=== PATIENT | female | born 1960 | race Caucasian/White ===

== ENCOUNTER 2016-08-07 11:41 | Inpatient (IN) | payer OTHER ==
[~2016-08-07] VITALS: Ht 160 cm; Wt 137.2 kg
--- NOTE | 2016-08-07 12:24 | ED.ADGEN ---
Adult General Chief Complaint Chief Complaint: ABDOMINAL PAIN HPI HPI Patient is a 56 year old with known lower anterior abdominal wall hernia presents with acute pain over her hernia site upon coughing early this morning. Patient states this is worsening of her previous abdominal pain around her hernia. Associated symptoms include nausea. Patient is passing gas and denies diarrhea. Patient was evaluated for the same hernia last weekend at [facility]. It is unclear if there are any attempts to reduce the patient's hernia in the emergency department. The patient was discharged and referred to general surgeon. The patient has a chronic smoker and states she is currently suffering from a chest cold which is exacerbating her abdominal wall hernia pain. Patient denies history of asthma, COPD or congestive heart failure or obstructive sleep apnea. Patient denies any other acute symptoms or complaints. Review of Systems Review of Systems Review symptoms as per history of present illness. Current Medications Current Medications Current Medications Medications (Trade) Dose Ordered Sig/Sabina Start Time Stop Time Status Last Admin Dose Admin Albuterol/ Ipratropium (Duoneb) 3 ml RTQID 08/07/16 16:00 08/08/16 15:59 Fentanyl Citrate (Fentanyl 2ml Vial) 50 mcg 1X ONCE 08/07/16 12:30 08/07/16 12:31 DC 08/07/16 12:45 50 MCG Info (Do NOT chart on this entry -- for MONITORING) 1 each PRN DAILY PRN 08/07/16 12:45 08/09/16 12:44 Iohexol (Omnipaque 300 Mg/ml) 60 ml 1X ONCE 08/07/16 12:45 08/07/16 12:46 DC 08/07/16 13:08 60 ML Levofloxacin (Levaquin) 500 mg 1X ONCE 08/07/16 16:15 08/07/16 16:16 Ondansetron HCl (Zofran) 4 mg 1X ONCE 08/07/16 12:30 08/07/16 12:31 DC 08/07/16 12:45 4 MG Sodium Chloride 1,000 ml @ 1,000 mls/hr 1X ONCE 08/07/16 12:30 08/07/16 13:29 DC 08/07/16 12:45 1,000 MLS/HR Allergies Allergies Allergies Coded Allergies Type Severity Reaction Last Updated Verified No Known Drug Allergies 08/07/16 No Physical Exam Physical Exam Constitutional: Well developed, well nourished, fatigued but with moderate discomfort secondary to pain. HENT: Normocephalic, atraumatic, bilateral external ears normal, oropharynx moist, no oral exudates, nose normal. Eyes: PERRL. Neck: Normal range of motion. Cardiovascular:Heart rate regular rhythm. Lungs & Thorax: Respirations nonlabored, coarse breath sounds bilaterally. No wheezes or rales. Abdomen: Bowel sounds normal, soft, obesity compromising exam, lower midline incarcerated abdominal wall hernia Skin: Warm. Back: No tenderness, no CVA tenderness. Extremities: No tenderness, no cyanosis, no clubbing, ROM intact, no edema. Neurologic: Alert and oriented X 3, normal motor function, normal sensory function, no focal deficits noted. Psychologic: Affect normal, judgement normal, mood normal. Current Patient Data Vital Signs Vital Signs Date Time Temp Pulse Resp B/P (MAP) Pulse Ox O2 Delivery O2 Flow Rate FiO2 08/07/16 12:45 16 93 Room Air 08/07/16 12:09 80 135/82 (99) Lab Values Laboratory Tests Test 08/07/16 12:15 08/07/16 12:36 White Blood Count 6.8 x10^3/uL (4.0-11.0) Red Blood Count 5.55 x10^6/uL (3.50-5.40) H Hemoglobin 16.7 g/dL (12.0-15.5) H Hematocrit 51.2 % (36.0-47.0) H Mean Corpuscular Volume 92 fL (79-100) Mean Corpuscular Hemoglobin 30 pg (25-35) Mean Corpuscular Hemoglobin Concent 33 g/dL (31-37) Red Cell Distribution Width 14.8 % (11.5-14.5) H Platelet Count 236 x10^3/uL (140-400) Neutrophils (%) (Auto) 63 % (31-73) Lymphocytes (%) (Auto) 26 % (24-48) Monocytes (%) (Auto) 7 % (0-9) Eosinophils (%) (Auto) 3 % (0-3) Basophils (%) (Auto) 0 % (0-3) Neutrophils # (Auto) 4.3 x10^3uL (1.8-7.7) Lymphocytes # (Auto) 1.8 x10^3/uL (1.0-4.8) Monocytes # (Auto) 0.5 x10^3/uL (0.0-1.1) Eosinophils # (Auto) 0.2 x10^3/uL (0.0-0.7) Basophils # (Auto) 0.0 x10^3/uL (0.0-0.2) Sodium Level 142 mmol/L (136-145) Potassium Level 3.9 mmol/L (3.5-5.1) Chloride Level 102 mmol/L (98-107) Carbon Dioxide Level 33 mmol/L (21-32) H Anion Gap 7 (6-14) Blood Urea Nitrogen 12 mg/dL (7-20) Creatinine 1.2 mg/dL (0.6-1.0) H Estimated GFR (Cockcroft-Gault) 46.1 BUN/Creatinine Ratio 10 (6-20) Glucose Level 147 mg/dL (70-99) H Calcium Level 8.8 mg/dL (8.5-10.1) Total Bilirubin 0.5 mg/dL (0.2-1.0) Aspartate Amino Transferase (AST) 32 U/L (15-37) Alanine Aminotransferase (ALT) 47 U/L (14-59) Alkaline Phosphatase 112 U/L (46-116) Total Protein 8.0 g/dL (6.4-8.2) Albumin 3.4 g/dL (3.4-5.0) Albumin/Globulin Ratio 0.7 (1.0-1.7) L Lactic Acid Level 1.2 mmol/L (0.4-2.0) Laboratory Tests 08/07/16 12:15 Laboratory Tests 08/07/16 12:15 EKG EKG [] Radiology/Procedures Radiology/Procedures [Chest x-ray: No acute cardiopulmonary disease per radiology report CT abdomen pelvis: Arch ventral wall hernia without evidence of bowel obstruction] Impressions: No evidence of strangulated hernia or partial small bowel obstruction. Course & Med Decision Making Course & Med Decision Making Pertinent Labs and Imaging studies reviewed. (See chart for details) [Case reviewed with Dr. Berrios who recommends patient follow up as an outpatient. During the ER stay, patient was given a breathing treatment for cough and steroids. She required supplemental oxygen as she is unable to maintain oxygen saturation greater than 86% with ambulation. Patient does not have fever, or elevated white blood cell count or infiltrate on x-ray. Patient will be admitted for Acute bronchitis with hypoxia and suspected underlying lying COPD. Dr. Dileep Mckinney agrees to admit.] Betty Disclaimer Betty Disclaimer This electronic medical record was generated, in whole or in part, using a voice recognition dictation system. CAL THOMPSON DO August 07, 2016 12:24
[2016-08-07 12:28] LABS: BASO % 0 % (0-3); EOS % 3 % (0-3); HEMATOCRIT 51.2 % (36.0-47.0); HEMOGLOBIN 16.7 g/dL (12.0-15.5); LYMPH # 1.8 x10^3/uL (1.0-4.8); LYMPH % 26 % (24-48); MEAN CORPUSCULAR HEMOGLOBIN 30 pg (25-35); MEAN CORPUSCULAR HGB CONC 33 g/dL (31-37); MEAN CORPUSCULAR VOLUME 92 fL (79-100); MONO % 7 % (0-9); NEUT % 63 % (31-73); PLATELET COUNT 236 x10^3/uL (140-400); RED BLOOD COUNT 5.55 x10^6/uL (3.50-5.40); RED CELL DISTRIBUTION WIDTH 14.8 % (11.5-14.5); WHITE BLOOD COUNT 6.8 x10^3/uL (4.0-11.0)
[2016-08-07] MEDS ORDERED: fentaNYL PF VIAL 100 MCG/2 ML VIAL IV ONE (12:30)
[2016-08-07] MEDS ORDERED: IV NORMAL SALINE 1000ML BAG 1,000 ML IV ONE (12:30)
[2016-08-07] MEDS ORDERED: ONDANSETRON PF 4 MG/2 ML VIAL. IV ONE (12:30)
[2016-08-07 12:39] LABS: CALCIUM 8.8 mg/dL (8.5-10.1); CREATININE 1.2 mg/dL (0.6-1.0); GFR 46.1; POTASSIUM 3.9 mmol/L (3.5-5.1)
[2016-08-07 12:45] LABS: ALBUMIN 3.4 g/dL (3.4-5.0); ALBUMIN/GLOBULIN RATIO 0.7 (1.0-1.7); TOTAL BILIRUBIN 0.5 mg/dL (0.2-1.0)
[2016-08-07] MEDS ORDERED: CONTRAST GIVEN MC PRN (12:45)
[2016-08-07] MEDS ORDERED: IPRATRPIUM/ALBUTEROL 0.5/2.5MG 3 ML NEBU. NEB ONE (12:45)
[2016-08-07] MEDS ORDERED: IOHEXOL 300 MG/ML 75 ML VIAL IV ONE (12:45)
--- NOTE | 2016-08-07 12:58 | RAD ---
Indication: Cough. Time of exam 12:51 PM Correlation is made with prior study from 07/05/2012. The heart is enlarged but stable. No infiltrate or failure is detected. No effusion or pneumothorax is identified. There are postop changes in the lower cervical spine. Impression: Cardiomegaly. No other significant abnormality is detected.
--- NOTE | 2016-08-07 13:46 | ACF ---
Admission Forms Criteria ABDOMINAL PAIN Clinical Indications for Admission to Inpatient Care (Place 'X' for any and all applicable criteria): Admission is indicated for ANY ONE of the following(1)(2)(3)(4)(5): [X]I. Inpatient admission required rather than observation care (Also use Abdominal Pain: Observation Care, as appropriate) because of ANY ONE of the following: [ ]a) Severe pain requiring acute inpatient management [X]b) Identification of etiology/finding that requires inpatient care (eg, aortic dissection, free air) [ ]c) Absent bowel sounds with complete ileus(6) [ ]d) Suspected toxic megacolon [ ]e) Severe electrolyte abnormalities requiring inpatient care [ ]f) High fever or infection requiring inpatient admission as indicated by ANY ONE of following(7)(8): [ ] i) Appropriate outpatient or observational care antimicrobial treatment unavailable, not effective, or not feasible [ ] ii) Documented bacteremia [ ] iii) Temperature > 104.9 degrees F (oral) [ ] iv) T >103.1 F (oral) or < 96.8 F(rectal) that does not respond to all emergency treatment measures [ ]g) Signs of intestinal obstruction [B] [ ]h) Hemodynamic instability [ ]i) IV fluid to replace significant ongoing losses (greater than 3 L/m2 per day) (12)(13) [ ]j) Percutaneous or open drainage (eg, abscess, biliary tract ) procedures [ ]k) Parenteral nutrition regimen that must be implemented on inpatient basis [ ]l) Other condition,treatment or monitoring requiring inpatient admission. [ ]II. Peritoneal signs present [ ]III. Surgery needed that cannot be performed on an ambulatory basis. [ ]IV. Evaluation requires patient to not eat or drink for extended period ( eg, more than 24 hours). [ ]V. Contraindications and/or Inappropriate clinical situations for Observational Care in patients with abdominal pain, when ANY ONE of the following is required: [ ]a) Thorough evaluation is required to prevent catastrophic events due to delays in diagnosing (e.g.Mesenteric ischemia) 1,3 [ ]b) Patient with severe pathology or with chronic symptoms unlikely to improve in the ED stay (3) [ ]. General contraindications and/or Inappropriate clinical situations for Observational Care in patients with abdominal pain, when ANY ONE of the following is required: [ ]a) Prediction of prolongation of LOS based on ANY ONE of the following may be considered as a contraindication for observational care 2, 3, 4, 5, 6, 7, 8, 9, 10, 11 [ ]i) Age > 65 yrs. [ ]ii) Patient arriving by ambulance [ ]iii) Patient with high acuity [ ]iv) Patient requiring vital sign monitoring [ ]v) Patient on IV medication [ ]b) Systolic blood pressures 180mmHg 3,12 [ ]c) Patient with altered mental status including delirium and other alteration of consciousness, (3) [ ]d) Patient whose discharge disposition will be to a correction home or rehabilitation home should not be managed in Emergency Department Observation Unit. CMS rule requires 3 days hospital stay before such placement.3,13 [ ]e) Patient with failure to thrive due to broad array of etiologies 3,16,17 [ ]f) Inability to ambulate 3,14 Extended stay beyond goal length of stay may be needed for(2)(3): [ ]a) Persistent abdominal pain with suspected intra-abdominal process [ ]b) Diagnosed condition requiring continued stay (e.g., pancreatitis, complicated diverticulitis) [ ]c) Surgery (e.g., colectomy) The original [facility] content created by [employer] has been revised. The portions of the content which have been revised are identified through the use of italic text or in bold, and [facility] has neither reviewed nor approved the modified material.All other unmodified content is copyright [employer]. Please see references footnoted in the original [employer] edition 2016 LEXIS BLOOD August 07, 2016 13:46
--- NOTE | 2016-08-07 14:08 | RAD ---
Indication: Abdominal pain and possible incarcerated hernia. Axial imaging through the abdomen and pelvis was performed after the administration of intravenous contrast. No prior studies are available for comparison. The lung bases are clear. The liver demonstrates diffuse low density consistent with fatty infiltration. There is a large stone within the gallbladder. The pancreas and spleen are unremarkable. No adrenal mass is detected. The kidneys are unremarkable. The aorta is nonaneurysmal. There is a large midline ventral hernia containing small bowel. No significant small bowel distention is identified. No wall thickening is detected. There is no free air, free fluid or fluid collection. The bladder and uterus are unremarkable. Impression: 1. Fatty infiltration of the liver. 2. Cholelithiasis. 3. Large midline ventral hernia containing small bowel loops. No definite bowel obstruction is detected.
[2016-08-07] MEDS ORDERED: IPRATRPIUM/ALBUTEROL 0.5/2.5MG 3 ML NEBU. NEB SCH (16:00)
[2016-08-07 17:20] VITALS: BP 137/79
[2016-08-07] MEDS ORDERED: ALBUTEROL SULFATE 2.5 MG/3 ML NEBU. NEB PRN (17:45)
--- NOTE | 2016-08-07 18:22 | ACF ---
Admission Forms Criteria COPD Clinical Indications for Admission to Inpatient Care (Place 'X' for any and all applicable criteria): Admission is indicated for ANY ONE of the following (1)(2)(3): [X]I. Acute exacerbation by high-risk comorbidity (e.g., pneumonia, dysrhythmia, heart failure, pleural effusion, pneumothorax) or severe underlying COPD (e.g., steroid dependent) [ ]II. Inpatient admission required rather than observation care (see Chronic Obstructive Pulmonary Disease: Observation Care) because of ANY ONE of the following: [ ]a) New or pre-existing signs or symptoms of COPD (eg, dyspnea or Tachypnea at rest or with minimal activity) that persist despite outpatient and observation care treatment [ ]b) New-onset hypoxemia (room air SaO2 less than 90%, PO2 less than 60 mm Hg (8.0 kPa)) that persists despite outpatient and observation care treatment [ ]c) Worsening of pre-existing hypoxemia (eg, new or increased requirement for supplemental oxygen to maintain oxygenation at baseline level) that persists despite outpatient and observation care treatment, with oxygen treatment needs performable only in acute inpatient setting [ ]d) Hypercarbia (PCO2 greater than 40 mm Hg (5.3 kPa))-induced respiratory acidosis (pH less than 7.35) that persists despite outpatient and observation care treatment [ ]e) Supplemental oxygen or respiratory treatments for over 24 hours that are performable only in acute inpatient setting [ ]f) Chest tube placement with active evacuation (e.g., suction, drainage) (5) [ ]g) Other condition, treatment or monitoring requiring inpatient admission [ ]III. Planned invasive surgical or diagnostic procedures requiring acute- care hospitalization [ ]IV. Acute respiratory failure (e.g., uncompensated hypercarbia, severe hypoxemia) [ ]V. Severe comorbid condition (e.g., severe steroid myopathy, acute vertebral fracture) that has acutely worsened pulmonary function [ ]. Confusion state, lethargy, obtundation, stupor or coma Extended stay beyond goal length of stay may be needed for (31)(32): [ ]a ) Respiratory Failure. [ ]b) Severe or persisting hypoxemia or hypercarbia [ ]c) Severe or persistent dyspnea [ ]d) Comorbidities (e.g. chronic heart failure, atrial fibrillation with rapid response, pneumonia) [ ]e) Malnutrition The original [facility] content created by [facility] has been revised. The portions of the content which have been revised are identified through the use of italic text or in bold, and [facility] has neither reviewed nor approved the modified material. All other unmodified content is copyright [facility] (formerly [facility])[3]. Please see references footnoted in the original [facility] edition 2016 Admission Criteria Met?: Yes LEXIS BLOOD August 07, 2016 18:21
[2016-08-07 19:00] VITALS: BP 136/79
[2016-08-07] MEDS: ALBUTEROL SULFATE 2.5 MG/3 ML NEBU. NEB SCH (19:36)
[2016-08-07] MEDS: ACETAMINOPHEN 325 MG TABLET. PO PRN (21:15)
[2016-08-07] MEDS: MONTELUKAST SODIUM 10 MG TABLET. PO SCH (21:15)
[2016-08-07 23:00] VITALS: BP 143/76
[2016-08-08 03:00] VITALS: BP 132/92
[2016-08-08 06:12] LABS: BASO % 0 % (0-3); EOS % 3 % (0-3); HEMATOCRIT 44.7 % (36.0-47.0); HEMOGLOBIN 15.1 g/dL (12.0-15.5); LYMPH # 2.5 x10^3/uL (1.0-4.8); LYMPH % 31 % (24-48); MEAN CORPUSCULAR HEMOGLOBIN 31 pg (25-35); MEAN CORPUSCULAR HGB CONC 34 g/dL (31-37); MEAN CORPUSCULAR VOLUME 91 fL (79-100); MONO % 11 % (0-9); NEUT % 54 % (31-73); PLATELET COUNT 239 x10^3/uL (140-400); RED BLOOD COUNT 4.94 x10^6/uL (3.50-5.40); RED CELL DISTRIBUTION WIDTH 14.7 % (11.5-14.5); WHITE BLOOD COUNT 7.9 x10^3/uL (4.0-11.0)
[2016-08-08 06:39] LABS: ALBUMIN 2.9 g/dL (3.4-5.0); ALBUMIN/GLOBULIN RATIO 0.7 (1.0-1.7); CALCIUM 8.2 mg/dL (8.5-10.1); GFR 56.9; POTASSIUM 3.8 mmol/L (3.5-5.1); TOTAL BILIRUBIN 0.5 mg/dL (0.2-1.0)
[2016-08-08 07:00] VITALS: BP 116/70
[2016-08-08] MEDS: PANTOPRAZOLE 40 MG TABLET.DR. PO SCH (07:41)
[2016-08-08] MEDS: ALBUTEROL SULFATE 2.5 MG/3 ML NEBU. NEB SCH ×3 (07:49→20:00)
--- NOTE | 2016-08-08 08:56 | PDOC1 ---
EMILIE GILL MANAGER SOCIAL MEDIA 08/08/16 0856: HISTORY AND PHYSICAL Chief Complaint Chief Complaint This 56 year old female has been admitted with a chief complaint of abdominal pain and hypoxia. She reports onset of abdominal pain last Dave at work. She started sweating and was shakey. She went to [facility] ER and was diagnosed with an hernia. She was to follow up with general surgeon. She noted onset sore throat, thick sinus drainage, itchy watery eyes, generalized achiness and sneezing 9 days ago. These upper respiratory symptoms have not improved. She was getting ready for work yesterday when a sudden onset of acute abdominal pain at the hernia site occurred. She doubled over in pain and again experienced sweating and shakiness. Nausea has been present with both occurrences of abdominal pain. She presented to the ED. A CT of the abd/pelvis with IV contrast revealed fatty liver, cholelithiasis and large midline ventral hernia containing small bowel. A SBO was not identified. CXR was clear but she was hypoxic with activity desating to less than 86%. She was started on O2, given albuterol treatment and a dose of Levaquin IV. She reports cough that is productive scant amount sputum thick. She is admitted for further evaluation and treatment. Problem List Problems Medical Problems: (1) Acute bronchitis Status: Acute (2) COPD exacerbation Status: Acute Past Medical History Cardiovascular: HTN GI: Other (fatty liver, midline abdominal hernia ) Musculoskeletal: Osteoarthritis (chronic L knee pain with h/o injections) ENT: Allergic Rhinitis Endocrine: Other (Vitamin D def, morbid obesity BMI 50-59) Past Surgical History PSH cervical disc rupture surgery 2012 Past Surgical History: Past Family History Family History: Coronary Artery Disease (MOther ), Diabetes (Brother ) Past Social History PSH currently + tobacco, neg ETOH or illicit drugs. Review of Symptoms Review of Symptoms A 14 point ROS was completed with the following noted as positive: per HPI Other systems reviewed and negative. Medications Medications reviewed and reconciled Allergy Allergies Coded Allergies Type Severity Reaction Last Updated Verified No Known Drug Allergies 08/07/16 No Physical Exam Physical Exam General appearance - alert, ill appearing, and in no distress Mental Status - alert, oriented to person, place, and time, affect appropriate to mood Head - normal Chest - clear to auscultation, no wheezes, rales or rhonchi, decreased bases Heart - S1 and S2 normal Abdomen - soft, nontender, nondistended, large midline hernia tender, BS + Neurological - no acute focal neurological deficit Musculoskeletal - no muscular tenderness noted Extremities - no pedal edema Skin - warm and dry VTE Prophylaxis Ordered VTE Prophylaxis Devices: Yes VTE Pharmacological Prophylaxi: No Assessment Labs Laboratory Tests Test 08/07/16 12:15 08/07/16 12:36 08/08/16 05:55 White Blood Count 6.8 x10^3/uL (4.0-11.0) 7.9 x10^3/uL (4.0-11.0) Red Blood Count 5.55 x10^6/uL (3.50-5.40) 4.94 x10^6/uL (3.50-5.40) Hemoglobin 16.7 g/dL (12.0-15.5) 15.1 g/dL (12.0-15.5) Hematocrit 51.2 % (36.0-47.0) 44.7 % (36.0-47.0) Mean Corpuscular Volume 92 fL (79-100) 91 fL (79-100) Mean Corpuscular Hemoglobin 30 pg (25-35) 31 pg (25-35) Mean Corpuscular Hemoglobin Concent 33 g/dL (31-37) 34 g/dL (31-37) Red Cell Distribution Width 14.8 % (11.5-14.5) 14.7 % (11.5-14.5) Platelet Count 236 x10^3/uL (140-400) 239 x10^3/uL (140-400) Neutrophils (%) (Auto) 63 % (31-73) 54 % (31-73) Lymphocytes (%) (Auto) 26 % (24-48) 31 % (24-48) Monocytes (%) (Auto) 7 % (0-9) 11 % (0-9) Eosinophils (%) (Auto) 3 % (0-3) 3 % (0-3) Basophils (%) (Auto) 0 % (0-3) 0 % (0-3) Neutrophils # (Auto) 4.3 x10^3uL (1.8-7.7) 4.3 x10^3uL (1.8-7.7) Lymphocytes # (Auto) 1.8 x10^3/uL (1.0-4.8) 2.5 x10^3/uL (1.0-4.8) Monocytes # (Auto) 0.5 x10^3/uL (0.0-1.1) 0.9 x10^3/uL (0.0-1.1) Eosinophils # (Auto) 0.2 x10^3/uL (0.0-0.7) 0.2 x10^3/uL (0.0-0.7) Basophils # (Auto) 0.0 x10^3/uL (0.0-0.2) 0.0 x10^3/uL (0.0-0.2) Sodium Level 142 mmol/L (136-145) 141 mmol/L (136-145) Potassium Level 3.9 mmol/L (3.5-5.1) 3.8 mmol/L (3.5-5.1) Chloride Level 102 mmol/L (98-107) 103 mmol/L (98-107) Carbon Dioxide Level 33 mmol/L (21-32) 33 mmol/L (21-32) Anion Gap 7 (6-14) 5 (6-14) Blood Urea Nitrogen 12 mg/dL (7-20) 9 mg/dL (7-20) Creatinine 1.2 mg/dL (0.6-1.0) 1.0 mg/dL (0.6-1.0) Estimated GFR (Cockcroft-Gault) 46.1 56.9 BUN/Creatinine Ratio 10 (6-20) 9 (6-20) Glucose Level 147 mg/dL (70-99) 106 mg/dL (70-99) Calcium Level 8.8 mg/dL (8.5-10.1) 8.2 mg/dL (8.5-10.1) Total Bilirubin 0.5 mg/dL (0.2-1.0) 0.5 mg/dL (0.2-1.0) Aspartate Amino Transf (AST/SGOT) 32 U/L (15-37) 24 U/L (15-37) Alanine Aminotransferase (ALT/SGPT) 47 U/L (14-59) 38 U/L (14-59) Alkaline Phosphatase 112 U/L (46-116) 90 U/L (46-116) Total Protein 8.0 g/dL (6.4-8.2) 7.0 g/dL (6.4-8.2) Albumin 3.4 g/dL (3.4-5.0) 2.9 g/dL (3.4-5.0) Albumin/Globulin Ratio 0.7 (1.0-1.7) 0.7 (1.0-1.7) Lactic Acid Level 1.2 mmol/L (0.4-2.0) Laboratory Tests Test 08/07/16 12:15 08/07/16 12:36 08/08/16 05:55 White Blood Count 6.8 x10^3/uL (4.0-11.0) 7.9 x10^3/uL (4.0-11.0) Red Blood Count 5.55 x10^6/uL (3.50-5.40) 4.94 x10^6/uL (3.50-5.40) Hemoglobin 16.7 g/dL (12.0-15.5) 15.1 g/dL (12.0-15.5) Hematocrit 51.2 % (36.0-47.0) 44.7 % (36.0-47.0) Mean Corpuscular Volume 92 fL (79-100) 91 fL (79-100) Mean Corpuscular Hemoglobin 30 pg (25-35) 31 pg (25-35) Mean Corpuscular Hemoglobin Concent 33 g/dL (31-37) 34 g/dL (31-37) Red Cell Distribution Width 14.8 % (11.5-14.5) 14.7 % (11.5-14.5) Platelet Count 236 x10^3/uL (140-400) 239 x10^3/uL (140-400) Neutrophils (%) (Auto) 63 % (31-73) 54 % (31-73) Lymphocytes (%) (Auto) 26 % (24-48) 31 % (24-48) Monocytes (%) (Auto) 7 % (0-9) 11 % (0-9) Eosinophils (%) (Auto) 3 % (0-3) 3 % (0-3) Basophils (%) (Auto) 0 % (0-3) 0 % (0-3) Neutrophils # (Auto) 4.3 x10^3uL (1.8-7.7) 4.3 x10^3uL (1.8-7.7) Lymphocytes # (Auto) 1.8 x10^3/uL (1.0-4.8) 2.5 x10^3/uL (1.0-4.8) Monocytes # (Auto) 0.5 x10^3/uL (0.0-1.1) 0.9 x10^3/uL (0.0-1.1) Eosinophils # (Auto) 0.2 x10^3/uL (0.0-0.7) 0.2 x10^3/uL (0.0-0.7) Basophils # (Auto) 0.0 x10^3/uL (0.0-0.2) 0.0 x10^3/uL (0.0-0.2) Sodium Level 142 mmol/L (136-145) 141 mmol/L (136-145) Potassium Level 3.9 mmol/L (3.5-5.1) 3.8 mmol/L (3.5-5.1) Chloride Level 102 mmol/L (98-107) 103 mmol/L (98-107) Carbon Dioxide Level 33 mmol/L (21-32) 33 mmol/L (21-32) Anion Gap 7 (6-14) 5 (6-14) Blood Urea Nitrogen 12 mg/dL (7-20) 9 mg/dL (7-20) Creatinine 1.2 mg/dL (0.6-1.0) 1.0 mg/dL (0.6-1.0) Estimated GFR (Cockcroft-Gault) 46.1 56.9 BUN/Creatinine Ratio 10 (6-20) 9 (6-20) Glucose Level 147 mg/dL (70-99) 106 mg/dL (70-99) Calcium Level 8.8 mg/dL (8.5-10.1) 8.2 mg/dL (8.5-10.1) Total Bilirubin 0.5 mg/dL (0.2-1.0) 0.5 mg/dL (0.2-1.0) Aspartate Amino Transf (AST/SGOT) 32 U/L (15-37) 24 U/L (15-37) Alanine Aminotransferase (ALT/SGPT) 47 U/L (14-59) 38 U/L (14-59) Alkaline Phosphatase 112 U/L (46-116) 90 U/L (46-116) Total Protein 8.0 g/dL (6.4-8.2) 7.0 g/dL (6.4-8.2) Albumin 3.4 g/dL (3.4-5.0) 2.9 g/dL (3.4-5.0) Albumin/Globulin Ratio 0.7 (1.0-1.7) 0.7 (1.0-1.7) Lactic Acid Level 1.2 mmol/L (0.4-2.0) Plan Plan IMPRESSION: 1. abdominal pain r/t large midline hernia containing small bowel 2. acute bronchitis 3. acute hypoxic respiratory failure 4. CKD II with azotemia due to dehydration no ARF, ROSALINA or ATN 5. CM per CXR 6. HTN 7. fatty liver 8. cholelithiasis asymptomatic 9. chronic L knee pain OA 10. morbid obesity with BMI 50-59 11. allergic rhinitis PLAN: abd pain ER d/w Dr. Boudreaux-surgical eval out patient acute hypoxic respiratory failure/AB nebulizer treatments mucinex 1200mg bid Levaquin 500mg IV daily pulmonary consult smoking cessation CXR CM-obtain ECHO (h/o HTN) HTN monitor CKD II with azotemia/mild dehydration IVF NS 100cc/hr Admit BUN 12 / 9 Cr 1.2 1.0 Continue IVF allergic rhinitis continue home meds DVT/GI prophylaxis SCD/ARIANE PPI For more details regarding further plans, please refer to the orders. DUANE WHITMORE MD 08/08/16 2812: HISTORY AND PHYSICAL Plan Plan She has abdominal pain with coughing.she has not been taking her allergy meds.She has nasal congestion and cough. Advised her to take allergy meds,inhalers regularly. Ventral hernia- saw her in ER.F/u with him as outpatient when cough and infection are better. D/w - she will also need screening for sleep apnea as outpatient. Morbid obesity- she has joined weight [employer]- she has lost about 20 lbs. The patient was seen and examined by me. Chart reviewed and plan of care formulated. Discussed with, reviewed and agree with SOCIAL WORK ADMINISTRATOR's notes, plan of care and orders with modifications as necessary. For more details regarding further plans, please refer to the orders. EMILIE GILL APRN August 08, 2016 08:56 DUANE WHITMORE MD August 08, 2016 09:26
[2016-08-08] MEDS ORDERED: CETIRIZINE HCL 10 MG TABLET. PO SCH ×2 (09:00→21:00)
[2016-08-08] MEDS ORDERED: ONDANSETRON PF 4 MG/2 ML VIAL. IV PRN (09:00)
[2016-08-08] MEDS: IPRATRPIUM/ALBUTEROL 0.5/2.5MG 3 ML NEBU. NEB SCH ×4 (09:30→19:35)
[2016-08-08] MEDS: IV NORMAL SALINE 1000ML BAG 1,000 ML IV SCH ×2 (09:38→23:20)
[2016-08-08] MEDS: FLUTICASONE 50MCG/NASAL SPRAY 16GM BOTTLE. NS SCH (09:39)
[2016-08-08] MEDS: CHOLECALCIFEROL (VITAMIN D3) 1,000 UNIT TABLET PO SCH (09:39)
[2016-08-08] MEDS: ACETAMINOPHEN 325 MG TABLET. PO PRN ×2 (09:41→21:24)
--- NOTE | 2016-08-08 09:41 | PDOC ---
Provider Note Provider Note dictated NENITA WAGNER MD August 08, 2016 09:41
--- NOTE | 2016-08-08 10:14 | CONS ---
DATE OF CONSULTATION: ATTENDING PHYSICIAN: Dr. Dileep Mckinney. REASON FOR CONSULTATION: Acute bronchitis, suspected OCTAVIA. HISTORY OF PRESENT ILLNESS: The patient is a 56-year-old morbidly obese female who has a BMI of 53. She has been a smoker since age 16 and continues to smoke cigarettes. She came to the hospital because of abdominal pain and umbilical hernia. She also has been having a cough with yellow sputum production. She says she has some mild exertional dyspnea. She was noted to have low oxygen saturation of 86% in the ER and currently placed on 2 liters of oxygen. Chest x-ray revealed cardiomegaly, but no definite infiltrates are seen. The patient had CT of the abdomen and pelvis which showed cholelithiasis and large midline ventral hernia containing small bowel. The patient states that she does feel tired, but she never had formal sleep study to rule out OCTAVIA. I noticed that she was noted to be dozing in between conversations. She is not on any chronic narcotics. She states that she did not have a good night sleep. PAST MEDICAL HISTORY: 1. Suspected COPD with ongoing tobaccoism. 2. Suspected OCTAVIA. 3. History of hypertension and osteoarthritis. 4. Allergic rhinitis. PAST SURGICAL HISTORY: Cervical disk rupture surgery in 2013 and . FAMILY HISTORY: Noncontributory to lungs. ALLERGIES: None. CURRENT MEDICATIONS: All reviewed as listed in the MRAD including DuoNebs. REVIEW OF SYSTEMS: A 10-point system obtained. Pertinent positives discussed in history of present illness, otherwise noncontributory. All systems that were negative were reviewed as well. PHYSICAL EXAMINATION: VITAL SIGNS: Blood pressure 116/70, afebrile, pulse ox 94% on 2 liters. HEENT: Sclerae nonicteric. NECK: Supple. LUNGS: Diminished breath sounds. CARDIOVASCULAR: Regular rate and rhythm. ABDOMEN: Soft, obese and she has midline abdominal hernia. EXTREMITIES: With no pitting edema. LABORATORY DATA: Reviewed. White cell count is 7.9, hemoglobin 15.1, platelets are 239. BUN 9, creatinine 1.0, ____ suggesting chronic hypercapnia. IMPRESSION: 1. Acute bronchitis with no definite infiltrates seen on the chest x-ray. 2. Suspected underlying chronic obstructive pulmonary disease with mild exacerbation. The patient has been a smoker since age 16. 3. Suspected chronic hypercapnia secondary to obesity hypoventilation syndrome. 4. Suspected obstructive sleep apnea. 5. Abdominal wall hernia. 6. Abnormal chest x-ray with cardiomegaly, obtain an echo to rule out any cardiomyopathy. 7. Acute hypoxic respiratory failure due to AECOPD. RECOMMENDATIONS: 1. Continue with present DuoNebs. 2. Continue with oxygen for now. 3. Continue antibiotics for acute bronchitis. 4. We will need outpatient sleep study. 5. Smoking cessation counseling provided. 6. Weight loss is strongly recommended. 7. We will obtain PFTs. 8. We will follow along with you. Discussed with Dr. Dileep Mckinney. NENITA WAGNER MD DR: MARTY/sree JOB#: [id number] / [id number] SHANNAN
[2016-08-08 10:31] LABS: PCO2 ABG 52 mmHg (35-46); PH ABG 7.38 (7.35-7.45)
[2016-08-08 10:32] LABS: FIO2 ABG 21; HCO3 ABG 30 mmol/L (21-28); PO2 ABG 61 mmHg (75-108); SAT O2 ABG 91 % (92-99)
[2016-08-08 11:00] VITALS: BP 138/87
[2016-08-08 15:00] VITALS: BP 140/79
--- NOTE | 2016-08-08 16:44 | CARD ---
APPROVED REPORT EXAM: Two-dimensional and M-mode echocardiogram with Doppler and color Doppler. Other Information Quality : Good INDICATION Cardiomyopathy Hypoxia 2D DIMENSIONS Left Atrium(2D)4.0 (1.6-4.0cm)IVSd1.3 (0.7-1.1cm) Aortic Root(2D)2.9 (2.0-3.7cm)LVDd5.2 (3.9-5.9cm) LVOT Diameter2.0 (1.8-2.4cm)PWd1.3 (0.7-1.1cm) LVDs3.8 (2.5-4.0cm)FS (%) 27.7 % SV70.1 mlLVEF(%)53.3 (>50%) Aortic Valve AoV Peak Abilio.161.0cm/sAoV VTI32.1cm AO Peak GR.10.4mmHgLVOT Peak Abilio.149.5cm/s AO Mean GR.7mmHgAVA (VMAX)3.04cm2 DMITRI (VTI)3.10cm2 Mitral Valve MV E Xkkmzzaf23.5cm/sMV DECEL [id number] MV A Sniptxmh46.0cm/sE/A Ratio1.1 Tricuspid Valve TR P. Fsdhxkps276ud/sRAP [id number] TR Peak Gr.86asHkZNMC31slGj LEFT VENTRICLE The left ventricle is normal size. There is mild concentric left ventricular hypertrophy. The left ve ntricular systolic function is normal and the ejection fraction is within normal range. The Ejection Fraction is 55-60%. There is normal LV segmental wall motion. Transmitral Doppler flow pattern is Gra de II-pseudonormal filling dynamics. RIGHT VENTRICLE The right ventricle is normal size. The right ventricular systolic function is normal. ATRIA The left atrium is mildly dilated. The right atrium size is normal. The interatrial septum is intact with no evidence for an atrial septal defect or patent foramen ovale as noted on 2-D or Doppler imagi ng. AORTIC VALVE The aortic valve is normal in structure and function. Doppler and Color Flow revealed no significant aortic regurgitation. There is no significant aortic valvular stenosis. MITRAL VALVE The mitral valve is normal in structure and function. There is no evidence of mitral valve prolapse. There is no mitral valve stenosis. Doppler and Color Flow revealed no mitral valve regurgitation note d. TRICUSPID VALVE The tricuspid valve is normal in structure and function. Doppler and Color Flow revealed trace tricus pid regurgitation. The PA pressure was estimated at 30 mmHg. There is no tricuspid valve stenosis. PULMONIC VALVE Doppler and Color Flow revealed no pulmonic valvular regurgitation. There is no pulmonic valvular han nosis. GREAT VESSELS The aortic root is normal in size. The ascending aorta is not well seen. The IVC is normal in size an d collapses <50% with inspiration. PERICARDIAL EFFUSION There is no evidence of significant pericardial effusion. Critical Notification Critical Value: No <Conclusion> The left ventricular systolic function is normal and the ejection fraction is within normal range. Th e Ejection Fraction is 55-60%. Doppler and Color Flow revealed trace tricuspid regurgitation. The PA pressure was estimated at 30 mm Hg. There is normal LV segmental wall motion.
[2016-08-08] MEDS ORDERED: ALBUTEROL SULFATE 2.5 MG/3 ML NEBU. NEB PRN (17:45)
[2016-08-08 19:00] VITALS: BP 143/69
[2016-08-08] MEDS: MONTELUKAST SODIUM 10 MG TABLET. PO SCH (21:23)
[2016-08-08 23:00] VITALS: BP 145/85
[2016-08-09 03:00] VITALS: BP 150/82
[2016-08-09 07:00] VITALS: BP 146/92
--- NOTE | 2016-08-09 07:24 | PDOC ---
BRIDGETEMILIE PUMPER HELPER 08/09/16 0724: IM PROGRESS NOTES- Subjective Subjective coughing less, clear. Sinus drainage clear with yellow tinge Objective Objective no distress, alert Vitals Vital Signs Date Time Temp Pulse Resp B/P (MAP) Pulse Ox O2 Delivery O2 Flow Rate FiO2 08/09/16 03:00 97.7 62 18 150/82 (104) 94 Nasal Cannula 2.0 97.7 Input & Output Intake and Output 08/09/16 07:00 Intake Total 2733 ml Balance 2733 ml Intake Oral 1150 ml IV Total 1583 ml # Voids 7 Physical Exam Physical Exam General appearance - alert, ill appearing, and in no distress Mental Status - alert, oriented to person, place, and time, affect appropriate to mood Head - normal Chest - clear to auscultation, no wheezes, rales or rhonchi, symmetric air entry Heart - S1 and S2 normal Abdomen - soft, + tender site of hernia, nondistended, BS + Neurological - no acute focal neurological deficits Musculoskeletal - no muscular tenderness noted Extremities - no pedal edema Skin - warm and dry Labs Laboratory Tests Test 08/07/16 12:15 08/07/16 12:36 08/08/16 05:55 08/08/16 10:20 White Blood Count 6.8 x10^3/uL (4.0-11.0) 7.9 x10^3/uL (4.0-11.0) Red Blood Count 5.55 x10^6/uL (3.50-5.40) 4.94 x10^6/uL (3.50-5.40) Hemoglobin 16.7 g/dL (12.0-15.5) 15.1 g/dL (12.0-15.5) Hematocrit 51.2 % (36.0-47.0) 44.7 % (36.0-47.0) Mean Corpuscular Volume 92 fL (79-100) 91 fL (79-100) Mean Corpuscular Hemoglobin 30 pg (25-35) 31 pg (25-35) Mean Corpuscular Hemoglobin Concent 33 g/dL (31-37) 34 g/dL (31-37) Red Cell Distribution Width 14.8 % (11.5-14.5) 14.7 % (11.5-14.5) Platelet Count 236 x10^3/uL (140-400) 239 x10^3/uL (140-400) Neutrophils (%) (Auto) 63 % (31-73) 54 % (31-73) Lymphocytes (%) (Auto) 26 % (24-48) 31 % (24-48) Monocytes (%) (Auto) 7 % (0-9) 11 % (0-9) Eosinophils (%) (Auto) 3 % (0-3) 3 % (0-3) Basophils (%) (Auto) 0 % (0-3) 0 % (0-3) Neutrophils # (Auto) 4.3 x10^3uL (1.8-7.7) 4.3 x10^3uL (1.8-7.7) Lymphocytes # (Auto) 1.8 x10^3/uL (1.0-4.8) 2.5 x10^3/uL (1.0-4.8) Monocytes # (Auto) 0.5 x10^3/uL (0.0-1.1) 0.9 x10^3/uL (0.0-1.1) Eosinophils # (Auto) 0.2 x10^3/uL (0.0-0.7) 0.2 x10^3/uL (0.0-0.7) Basophils # (Auto) 0.0 x10^3/uL (0.0-0.2) 0.0 x10^3/uL (0.0-0.2) Sodium Level 142 mmol/L (136-145) 141 mmol/L (136-145) Potassium Level 3.9 mmol/L (3.5-5.1) 3.8 mmol/L (3.5-5.1) Chloride Level 102 mmol/L (98-107) 103 mmol/L (98-107) Carbon Dioxide Level 33 mmol/L (21-32) 33 mmol/L (21-32) Anion Gap 7 (6-14) 5 (6-14) Blood Urea Nitrogen 12 mg/dL (7-20) 9 mg/dL (7-20) Creatinine 1.2 mg/dL (0.6-1.0) 1.0 mg/dL (0.6-1.0) Estimated GFR (Cockcroft-Gault) 46.1 56.9 BUN/Creatinine Ratio 10 (6-20) 9 (6-20) Glucose Level 147 mg/dL (70-99) 106 mg/dL (70-99) Calcium Level 8.8 mg/dL (8.5-10.1) 8.2 mg/dL (8.5-10.1) Total Bilirubin 0.5 mg/dL (0.2-1.0) 0.5 mg/dL (0.2-1.0) Aspartate Amino Transf (AST/SGOT) 32 U/L (15-37) 24 U/L (15-37) Alanine Aminotransferase (ALT/SGPT) 47 U/L (14-59) 38 U/L (14-59) Alkaline Phosphatase 112 U/L (46-116) 90 U/L (46-116) Total Protein 8.0 g/dL (6.4-8.2) 7.0 g/dL (6.4-8.2) Albumin 3.4 g/dL (3.4-5.0) 2.9 g/dL (3.4-5.0) Albumin/Globulin Ratio 0.7 (1.0-1.7) 0.7 (1.0-1.7) Lactic Acid Level 1.2 mmol/L (0.4-2.0) O2 Saturation 91 % (92-99) Arterial Blood pH 7.38 (7.35-7.45) Arterial Blood pCO2 at Patient Temp 52 mmHg (35-46) Arterial Blood pO2 at Patient Temp 61 mmHg (75-108) Arterial Blood HCO3 30 mmol/L (21-28) Arterial Blood Base Excess 3 mmol/L (-3-3) FiO2 21 Laboratory Tests Test 08/08/16 10:20 O2 Saturation 91 % (92-99) Arterial Blood pH 7.38 (7.35-7.45) Arterial Blood pCO2 at Patient Temp 52 mmHg (35-46) Arterial Blood pO2 at Patient Temp 61 mmHg (75-108) Arterial Blood HCO3 30 mmol/L (21-28) Arterial Blood Base Excess 3 mmol/L (-3-3) FiO2 21 Meds Current Medications Albuterol Sulfate (Ventolin Neb Soln) 2.5 mg PRN Q2HRS PRN NEB SHORTNESS OF BREATH; Start 08/08/16 at 17:45 Albuterol/ Ipratropium (Duoneb) 3 ml RTQID NEB Last administered on 08/08/16 19 :35; Start 08/08/16 at 09:30 Cetirizine HCl (Zyrtec) 10 mg DAILY PO Last administered on 08/08/16 07:41; Start 08/08/16 at 09:00; Stop 08/08/16 at 09:05; Status DC Cetirizine HCl (Zyrtec) 10 mg HS PO Last administered on 08/08/16 21:24; Start 08/08/16 at 21:00 Fluticasone Propionate (Flonase) 2 spray DAILY NS Last administered on 09:39; Start 08/08/16 at 09:00 Guaifenesin (Mucinex) 1,200 mg BID PO Last administered on 08/08/16 21:23; Start 08/08/16 at 09:00 Levofloxacin/ Dextrose 100 ml @ 100 mls/hr Q24H IV Last administered on 09:38; Start 08/08/16 at 10:00 Ondansetron HCl (Zofran) 4 mg PRN Q6HRS PRN IV NAUSEA/VOMITING; Start 08/08/16 at 09:00 Pantoprazole Sodium (Protonix) 40 mg DAILYAC PO Last administered on 08/08/16 07:41; Start 08/08/16 at 07:30 Sodium Chloride 1,000 ml @ 75 mls/hr [id number] IV Last administered on 08/08/16 23:20; Start 08/08/16 at 10:00 Vitamin D (Vitamin D3) 2,000 unit DAILY PO Last administered on 08/08/16 09:39 ; Start 08/08/16 at 09:00 Assessment Assessment IMPRESSION: 1. abdominal pain r/t large midline hernia containing small bowel secondary to coughing 2. acute bronchitis 3. acute hypoxic respiratory failure secondary to exacerbation of suspected COPD 4. CKD II with azotemia due to dehydration no ARF, ROSALINA or ATN 5. CM per CXR 6. HTN 7. fatty liver 8. cholelithiasis asymptomatic 9. chronic L knee pain OA 10. morbid obesity with BMI 50-59 11. allergic rhinitis 12. suspected OHSOSA 13. suspected COPD with h/o smoking since 16yo PLAN: abd pain ER d/w Dr. Boudreaux-surgical eval out patient acute hypoxic respiratory failure/AB nebulizer treatments mucinex 1200mg bid Levaquin 500mg IV daily pulmonary consult smoking cessation CXR CM-obtain ECHO (h/o HTN) ECHO Ef 55-60%, pulm HTN with PA pressure 30 mmHg suspected COPD with exacerbation suspected OSH/OCTAVIA with hypercapnia HTN monitor CKD II with azotemia/mild dehydration IVF NS 100cc/hr Admit BUN 12 08/08 9 Cr 1.2 1.0 Continue IVF allergic rhinitis continue home meds DVT/GI prophylaxis SCD/ARIANE PPI Labs pending DC initiated--Symbicort/ProAir, flonase, singulair and tessalon perle ( tid x 7day). Scripts transmitted. For more details regarding further plans, please refer to the orders. Plan Plan For more details regarding further plans, please refer to the orders. DUANE WHITMORE MD 08/09/16 0939: IM PROGRESS NOTES- Assessment Assessment still has somecoughing and wheezing. IV [id number] mg x1. ok to discharge.see in office in 3 days. sleep study as outpatient. The patient was seen and examined by me. Chart reviewed and plan of care formulated. Discussed with, reviewed and agree with CARDIOTHORACIC PHYSIOTHERAPIST's notes, plan of care and orders with modifications as necessary. Discharge Management - 35 minutes. EMILIE GILL APRN August 09, 2016 07:24 DUANE WHITMORE MD August 09, 2016 09:39
--- NOTE | 2016-08-09 07:25 | DISCH ---
DISCHARGE INSTRUCTIONS Condition on Discharge Condition on Discharge: Stable Activity After Discharge Activity Instructions for Disc: Activity as tolerated Diet after Discharge Diet after Discharge: Cardiac Contacting the DRMelissa after DC Call your doctor for: Concerns you may have Follow-Up Follow up with: Dr. Mckinney or Liam Sunday next week Follow Up With: Dr. Arreguin per his instructions EMILIE GILL APRN August 09, 2016 07:25
[2016-08-09] MEDS ORDERED: PANT40TA5 PO (07:31)
[2016-08-09] MEDS ORDERED: BENZ100C PO (07:31)
[2016-08-09] MEDS ORDERED: MONT10TA9 PO (07:31)
[2016-08-09] MEDS ORDERED: CETI10TA16 PO (07:31)
[2016-08-09] MEDS ORDERED: PROAIR HFA8.5 GM INH (07:31)
[2016-08-09] MEDS ORDERED: LEVO500T38 PO (07:31)
[2016-08-09] MEDS ORDERED: FLUT16SP NS (07:31)
[2016-08-09] MEDS ORDERED: BUDE10.2 IH (07:31)
[2016-08-09] MEDS ORDERED: CHOL10002 PO (07:31)
[2016-08-09] MEDS: IPRATRPIUM/ALBUTEROL 0.5/2.5MG 3 ML NEBU. NEB SCH ×2 (07:51→11:56)
[2016-08-09] MEDS: ALBUTEROL SULFATE 2.5 MG/3 ML NEBU. NEB SCH (08:00)
[2016-08-09] MEDS: PANTOPRAZOLE 40 MG TABLET.DR. PO SCH (08:30)
[2016-08-09] MEDS: FLUTICASONE 50MCG/NASAL SPRAY 16GM BOTTLE. NS SCH (08:30)
[2016-08-09] MEDS: CHOLECALCIFEROL (VITAMIN D3) 1,000 UNIT TABLET PO SCH (08:30)
[2016-08-09 08:42] LABS: BASO % 0 % (0-3); EOS % 4 % (0-3); HEMATOCRIT 45.3 % (36.0-47.0); HEMOGLOBIN 15.3 g/dL (12.0-15.5); LYMPH # 2.1 x10^3/uL (1.0-4.8); LYMPH % 31 % (24-48); MEAN CORPUSCULAR HEMOGLOBIN 31 pg (25-35); MEAN CORPUSCULAR HGB CONC 34 g/dL (31-37); MEAN CORPUSCULAR VOLUME 90 fL (79-100); MONO % 10 % (0-9); NEUT % 54 % (31-73); PLATELET COUNT 235 x10^3/uL (140-400); RED BLOOD COUNT 5.02 x10^6/uL (3.50-5.40); RED CELL DISTRIBUTION WIDTH 14.7 % (11.5-14.5); WHITE BLOOD COUNT 6.7 x10^3/uL (4.0-11.0)
[2016-08-09 08:58] LABS: CALCIUM 8.3 mg/dL (8.5-10.1); CREATININE 0.9 mg/dL (0.6-1.0); GFR 64.3
[2016-08-09] MEDS ORDERED: methylPREDNISolone SOD SUCC PF 125 MG/2 ML VIAL. IV ONE (10:00)
[2016-08-09 11:00] VITALS: BP 113/94
--- NOTE | 2016-08-09 12:32 | PDOC ---
PULMONARY PROGRESS NOTES Subjective feels better Vitals Vital Signs Date Time Temp Pulse Resp B/P (MAP) Pulse Ox O2 Delivery O2 Flow Rate FiO2 08/09/16 11:56 94 Room Air 08/09/16 11:00 97.9 69 20 113/94 (100) 2.0 97.9 General: Alert, No acute distress Lungs: Clear Cardiovascular: S1 Abdomen: Soft Neuro Exam: Alert Extremities: Other (1+edema) Skin: Warm Labs Laboratory Tests Test 08/07/16 12:36 08/08/16 05:55 08/08/16 10:20 08/09/16 07:55 Lactic Acid Level 1.2 mmol/L (0.4-2.0) White Blood Count 7.9 x10^3/uL (4.0-11.0) 6.7 x10^3/uL (4.0-11.0) Red Blood Count 4.94 x10^6/uL (3.50-5.40) 5.02 x10^6/uL (3.50-5.40) Hemoglobin 15.1 g/dL (12.0-15.5) 15.3 g/dL (12.0-15.5) Hematocrit 44.7 % (36.0-47.0) 45.3 % (36.0-47.0) Mean Corpuscular Volume 91 fL (79-100) 90 fL (79-100) Mean Corpuscular Hemoglobin 31 pg (25-35) 31 pg (25-35) Mean Corpuscular Hemoglobin Concent 34 g/dL (31-37) 34 g/dL (31-37) Red Cell Distribution Width 14.7 % (11.5-14.5) 14.7 % (11.5-14.5) Platelet Count 239 x10^3/uL (140-400) 235 x10^3/uL (140-400) Neutrophils (%) (Auto) 54 % (31-73) 54 % (31-73) Lymphocytes (%) (Auto) 31 % (24-48) 31 % (24-48) Monocytes (%) (Auto) 11 % (0-9) 10 % (0-9) Eosinophils (%) (Auto) 3 % (0-3) 4 % (0-3) Basophils (%) (Auto) 0 % (0-3) 0 % (0-3) Neutrophils # (Auto) 4.3 x10^3uL (1.8-7.7) 3.6 x10^3uL (1.8-7.7) Lymphocytes # (Auto) 2.5 x10^3/uL (1.0-4.8) 2.1 x10^3/uL (1.0-4.8) Monocytes # (Auto) 0.9 x10^3/uL (0.0-1.1) 0.7 x10^3/uL (0.0-1.1) Eosinophils # (Auto) 0.2 x10^3/uL (0.0-0.7) 0.3 x10^3/uL (0.0-0.7) Basophils # (Auto) 0.0 x10^3/uL (0.0-0.2) 0.0 x10^3/uL (0.0-0.2) Sodium Level 141 mmol/L (136-145) 141 mmol/L (136-145) Potassium Level 3.8 mmol/L (3.5-5.1) 4.0 mmol/L (3.5-5.1) Chloride Level 103 mmol/L (98-107) 105 mmol/L (98-107) Carbon Dioxide Level 33 mmol/L (21-32) 30 mmol/L (21-32) Anion Gap 5 (6-14) 6 (6-14) Blood Urea Nitrogen 9 mg/dL (7-20) 7 mg/dL (7-20) Creatinine 1.0 mg/dL (0.6-1.0) 0.9 mg/dL (0.6-1.0) Estimated GFR (Cockcroft-Gault) 56.9 64.3 BUN/Creatinine Ratio 9 (6-20) Glucose Level 106 mg/dL (70-99) 111 mg/dL (70-99) Calcium Level 8.2 mg/dL (8.5-10.1) 8.3 mg/dL (8.5-10.1) Total Bilirubin 0.5 mg/dL (0.2-1.0) Aspartate Amino Transf (AST/SGOT) 24 U/L (15-37) Alanine Aminotransferase (ALT/SGPT) 38 U/L (14-59) Alkaline Phosphatase 90 U/L (46-116) Total Protein 7.0 g/dL (6.4-8.2) Albumin 2.9 g/dL (3.4-5.0) Albumin/Globulin Ratio 0.7 (1.0-1.7) O2 Saturation 91 % (92-99) Arterial Blood pH 7.38 (7.35-7.45) Arterial Blood pCO2 at Patient Temp 52 mmHg (35-46) Arterial Blood pO2 at Patient Temp 61 mmHg (75-108) Arterial Blood HCO3 30 mmol/L (21-28) Arterial Blood Base Excess 3 mmol/L (-3-3) FiO2 21 Magnesium Level 2.0 mg/dL (1.8-2.4) Laboratory Tests Test 08/09/16 07:55 White Blood Count 6.7 x10^3/uL (4.0-11.0) Red Blood Count 5.02 x10^6/uL (3.50-5.40) Hemoglobin 15.3 g/dL (12.0-15.5) Hematocrit 45.3 % (36.0-47.0) Mean Corpuscular Volume 90 fL (79-100) Mean Corpuscular Hemoglobin 31 pg (25-35) Mean Corpuscular Hemoglobin Concent 34 g/dL (31-37) Red Cell Distribution Width 14.7 % (11.5-14.5) Platelet Count 235 x10^3/uL (140-400) Neutrophils (%) (Auto) 54 % (31-73) Lymphocytes (%) (Auto) 31 % (24-48) Monocytes (%) (Auto) 10 % (0-9) Eosinophils (%) (Auto) 4 % (0-3) Basophils (%) (Auto) 0 % (0-3) Neutrophils # (Auto) 3.6 x10^3uL (1.8-7.7) Lymphocytes # (Auto) 2.1 x10^3/uL (1.0-4.8) Monocytes # (Auto) 0.7 x10^3/uL (0.0-1.1) Eosinophils # (Auto) 0.3 x10^3/uL (0.0-0.7) Basophils # (Auto) 0.0 x10^3/uL (0.0-0.2) Sodium Level 141 mmol/L (136-145) Potassium Level 4.0 mmol/L (3.5-5.1) Chloride Level 105 mmol/L (98-107) Carbon Dioxide Level 30 mmol/L (21-32) Anion Gap 6 (6-14) Blood Urea Nitrogen 7 mg/dL (7-20) Creatinine 0.9 mg/dL (0.6-1.0) Estimated GFR (Cockcroft-Gault) 64.3 Glucose Level 111 mg/dL (70-99) Calcium Level 8.3 mg/dL (8.5-10.1) Magnesium Level 2.0 mg/dL (1.8-2.4) Medications Active Scripts Medications Dose Route/Sig Max Daily Dose Days Date Category Tessalon Perle (Benzonatate) 100 Mg Capsule 1 Cap PO PRN TID 08/09/16 Rx Proair Hfa Inhaler (Albuterol Sulfate) 8.5 Gm Hfa.aer.ad 2 Puff INH PRN QID PRN 08/09/16 Rx Symbicort 160-4.5 Mcg Inhaler (Budesonide/Formoterol Fumarate) 10.2 Gm Hfa.aer.ad 2 Puff IH BID 08/09/16 Rx Levaquin (Levofloxacin) 500 Mg Tablet 500 Mg PO DAILY 08/09/16 Rx Pantoprazole Sodium 40 Mg Tablet.dr 40 Mg PO DAILYAC 08/09/16 Rx Montelukast Sodium Tablet (Montelukast Sodium) 10 Mg Tablet 10 Mg PO QHS 08/09/16 Rx Fluticasone Propionate Nasal [place] (Fluticasone Propionate) 16 Gm [place].susp 2 [place] NS DAILY 08/09/16 Rx Vitamin D (Cholecalciferol (Vitamin D3)) 1,000 Unit Tablet 2,000 Unit PO DAILY 08/09/16 Rx Cetirizine Hcl 10 Mg Tablet 10 Mg PO HS 08/09/16 Rx Impression . 1. Acute bronchitis with no definite infiltrates seen on the chest x-ray. 2. Suspected underlying chronic obstructive pulmonary disease with mild exacerbation. The patient has been a smoker since age 16. 3. Suspected chronic hypercapnia secondary to obesity hypoventilation syndrome. 4. Suspected obstructive sleep apnea. 5. Abdominal wall hernia. 6. Abnormal chest x-ray with cardiomegaly, obtain an echo to rule out any cardiomyopathy. 7. Acute hypoxic respiratory failure due to AECOPD. Plan . 1. Continue with present DuoNebs. 2. Continue with oxygen for now. 3. Continue antibiotics for acute bronchitis. 4. We will need outpatient sleep study. 5. Smoking cessation counseling provided. 6. Weight loss is strongly recommended. 7. PFTs.with mild obstruction/?restriction 8. ok with NENITA Cherry MD August 09, 2016 12:32
[2016-08-09] MEDS: IV NORMAL SALINE 1000ML BAG 1,000 ML IV SCH (12:40)
--- NOTE | 2016-08-09 17:29 | RESP ---
DATE OF SERVICE: 08/08/2016 The patient's FVC was 1.68 which is 52% of predicted. FEV1 was 1.25 which is 50% of predicted. The FEV1/FVC ratio was normal. FEF 25-75 was 1.19 which was 50% of predicted. There was no significant response to bronchodilators. Lung volumes were not performed. Diffusion capacity was markedly elevated at 345% of predicted which could be an erroneous result. IMPRESSION: 1. Spirometry findings suggestive of small airway dysfunction. However, restrictive lung disease cannot be ruled out as lung volumes were not performed. 2. No significant response to bronchodilators. NENITA WAGNER MD DR: MARTY/sree JOB#: [id number] / [id number] SHANNAN
--- NOTE | 2016-08-10 14:50 | PDOC3 ---
IM DISCHARGE SUMMARY Date of Admission Date of Admission Date of Admission: August 07, 2016 at 14:30 Date of Discharge Date of Discharge 08/09/16 Primary Diagnosis Primary Diagnosis 1. abdominal pain r/t large midline hernia containing small bowel secondary to coughing 2. acute bronchitis 3. acute hypoxic respiratory failure secondary to exacerbation of suspected COPD 4. CKD II with azotemia due to dehydration no ARF, ROSALINA or ATN 5. CM per CXR 6. HTN 7. fatty liver 8. cholelithiasis asymptomatic 9. chronic L knee pain OA 10. morbid obesity with BMI 50-59 11. allergic rhinitis 12. suspected OHSOSA 13. suspected COPD with h/o smoking since 16yo Problems: Consults Consults Michoacano Arreguin MD Procedures Procedures APPROVED REPORT EXAM: Two-dimensional and M-mode echocardiogram with Doppler and color Doppler. Other Information Quality : Good INDICATION Cardiomyopathy Hypoxia 2D DIMENSIONS Left Atrium(2D) 4.0 (1.6-4.0cm) IVSd 1.3 (0.7-1.1cm) Aortic Root(2D) 2.9 (2.0-3.7cm) LVDd 5.2 (3.9-5.9cm) LVOT Diameter 2.0 (1.8-2.4cm) PWd 1.3 (0.7-1.1cm) LVDs 3.8 (2.5-4.0cm) FS (%) 27.7 % SV 70.1 ml LVEF(%) 53.3 (>50%) Aortic Valve AoV Peak Abilio. 161.0cm/s AoV VTI 32.1cm AO Peak GR. 10.4mmHg LVOT Peak Abilio. 149.5cm/s AO Mean GR. 7mmHg DMITRI (VMAX) 3.04cm2 DMITRI (VTI) 3.10cm2 Mitral Valve MV E Velocity 88.5cm/s MV DECEL TIME 212ms MV A Velocity 82.0cm/s E/A Ratio 1.1 Tricuspid Valve TR P. Velocity 233cm/s RAP ESTIMATE 8mmHg TR Peak Gr. 22mmHg RVSP 30mmHg LEFT VENTRICLE The left ventricle is normal size. There is mild concentric left ventricular hypertrophy. The left ventricular systolic function is normal and the ejection fraction is within normal range. The Ejection Fraction is 55-60%. There is normal LV segmental wall motion. Transmitral Doppler flow pattern is Grade II- pseudonormal filling dynamics. RIGHT VENTRICLE The right ventricle is normal size. The right ventricular systolic function is normal. ATRIA The left atrium is mildly dilated. The right atrium size is normal. The interatrial septum is intact with no evidence for an atrial septal defect or patent foramen ovale as noted on 2-D or Doppler imaging. AORTIC VALVE The aortic valve is normal in structure and function. Doppler and Color Flow revealed no significant aortic regurgitation. There is no significant aortic valvular stenosis. MITRAL VALVE The mitral valve is normal in structure and function. There is no evidence of mitral valve prolapse. There is no mitral valve stenosis. Doppler and Color Flow revealed no mitral valve regurgitation noted. TRICUSPID VALVE The tricuspid valve is normal in structure and function. Doppler and Color Flow revealed trace tricuspid regurgitation. The PA pressure was estimated at 30 mmHg. There is no tricuspid valve stenosis. PULMONIC VALVE Doppler and Color Flow revealed no pulmonic valvular regurgitation. There is no pulmonic valvular stenosis. GREAT VESSELS The aortic root is normal in size. The ascending aorta is not well seen. The IVC is normal in size and collapses <50% with inspiration. PERICARDIAL EFFUSION There is no evidence of significant pericardial effusion. Critical Notification Critical Value: No <Conclusion> The left ventricular systolic function is normal and the ejection fraction is within normal range. The Ejection Fraction is 55-60%. Doppler and Color Flow revealed trace tricuspid regurgitation. The PA pressure was estimated at 30 mmHg. There is normal LV segmental wall motion. DICTATED and SIGNED BY: HARDEEP YANES MD DATE: 08/08/16 [id number] Labs Labs Laboratory Tests Test 08/08/16 05:55 08/08/16 10:20 08/09/16 07:55 White Blood Count 7.9 x10^3/uL (4.0-11.0) 6.7 x10^3/uL (4.0-11.0) Red Blood Count 4.94 x10^6/uL (3.50-5.40) 5.02 x10^6/uL (3.50-5.40) Hemoglobin 15.1 g/dL (12.0-15.5) 15.3 g/dL (12.0-15.5) Hematocrit 44.7 % (36.0-47.0) 45.3 % (36.0-47.0) Mean Corpuscular Volume 91 fL (79-100) 90 fL (79-100) Mean Corpuscular Hemoglobin 31 pg (25-35) 31 pg (25-35) Mean Corpuscular Hemoglobin Concent 34 g/dL (31-37) 34 g/dL (31-37) Red Cell Distribution Width 14.7 % (11.5-14.5) 14.7 % (11.5-14.5) Platelet Count 239 x10^3/uL (140-400) 235 x10^3/uL (140-400) Neutrophils (%) (Auto) 54 % (31-73) 54 % (31-73) Lymphocytes (%) (Auto) 31 % (24-48) 31 % (24-48) Monocytes (%) (Auto) 11 % (0-9) 10 % (0-9) Eosinophils (%) (Auto) 3 % (0-3) 4 % (0-3) Basophils (%) (Auto) 0 % (0-3) 0 % (0-3) Neutrophils # (Auto) 4.3 x10^3uL (1.8-7.7) 3.6 x10^3uL (1.8-7.7) Lymphocytes # (Auto) 2.5 x10^3/uL (1.0-4.8) 2.1 x10^3/uL (1.0-4.8) Monocytes # (Auto) 0.9 x10^3/uL (0.0-1.1) 0.7 x10^3/uL (0.0-1.1) Eosinophils # (Auto) 0.2 x10^3/uL (0.0-0.7) 0.3 x10^3/uL (0.0-0.7) Basophils # (Auto) 0.0 x10^3/uL (0.0-0.2) 0.0 x10^3/uL (0.0-0.2) Sodium Level 141 mmol/L (136-145) 141 mmol/L (136-145) Potassium Level 3.8 mmol/L (3.5-5.1) 4.0 mmol/L (3.5-5.1) Chloride Level 103 mmol/L (98-107) 105 mmol/L (98-107) Carbon Dioxide Level 33 mmol/L (21-32) 30 mmol/L (21-32) Anion Gap 5 (6-14) 6 (6-14) Blood Urea Nitrogen 9 mg/dL (7-20) 7 mg/dL (7-20) Creatinine 1.0 mg/dL (0.6-1.0) 0.9 mg/dL (0.6-1.0) Estimated GFR (Cockcroft-Gault) 56.9 64.3 BUN/Creatinine Ratio 9 (6-20) Glucose Level 106 mg/dL (70-99) 111 mg/dL (70-99) Calcium Level 8.2 mg/dL (8.5-10.1) 8.3 mg/dL (8.5-10.1) Total Bilirubin 0.5 mg/dL (0.2-1.0) Aspartate Amino Transf (AST/SGOT) 24 U/L (15-37) Alanine Aminotransferase (ALT/SGPT) 38 U/L (14-59) Alkaline Phosphatase 90 U/L (46-116) Total Protein 7.0 g/dL (6.4-8.2) Albumin 2.9 g/dL (3.4-5.0) Albumin/Globulin Ratio 0.7 (1.0-1.7) O2 Saturation 91 % (92-99) Arterial Blood pH 7.38 (7.35-7.45) Arterial Blood pCO2 at Patient Temp 52 mmHg (35-46) Arterial Blood pO2 at Patient Temp 61 mmHg (75-108) Arterial Blood HCO3 30 mmol/L (21-28) Arterial Blood Base Excess 3 mmol/L (-3-3) FiO2 21 Magnesium Level 2.0 mg/dL (1.8-2.4) Brief hospital course Brief hospital course This 56 year old female who presented with acute hypoxic respiratory failure and abdominal pain was admitted. The following is a summary of her treatment: abd pain secondary to cough ER d/w Dr. Boudreaux-surgical eval out patient acute hypoxic respiratory failure/AB nebulizer treatments mucinex 1200mg bid Levaquin 500mg IV daily pulmonary consult smoking cessation CXR CM-obtain ECHO (h/o HTN) ECHO Ef 55-60%, pulm HTN with PA pressure 30 mmHg suspected COPD with exacerbation suspected OSH/OCTAVIA with hypercapnia HTN monitor CKD II with azotemia/mild dehydration IVF NS 100cc/hr Admit BUN 12 08/08 9 Cr 1.2 1.0 Continue IVF allergic rhinitis continue home meds DVT/GI prophylaxis SCD/ARIANE PPI Labs pending DC initiated--Symbicort/ProAir, flonase, singulair and tessalon perle ( tid x 7day). Scripts transmitted. For more details regarding the past history, family history, social history, surgical history and other details, please refer to History and Physical. She is discharged home. F/U with Dr. Arreguin for pulmonary testing. Medications Medications reviewed and reconciled for discharge. Allergy Allergies Coded Allergies Type Severity Reaction Last Updated Verified No Known Drug Allergies 08/07/16 No Follow up Sunday next week. DISPOSITION: Home Comments Discharge Management - 35 minutes. For other details please refer to discharge instructions EMILIE GILL APRN August 10, 2016 14:50
[2016-08-12] MEDS ORDERED: HYDR-2666 PO (10:06)
== END 2016-08-09 13:23 | disposition home or self-care (01) | DRG 189 ==
LOC: ER 11:41 → ED HOLD 14:30 → 5 NORTH 17:11
PROVIDERS: ADMIT Internal Medicine; ATTEND Internal Medicine
DX: J96.01 Acute respiratory failure with hypoxia (principal); J44.0 Chronic obstructive pulmonary disease with (acute) lower respiratory infection; Z68.43 Body mass index [BMI] 50.0-59.9, adult; I31.3 Pericardial effusion (noninflammatory); I42.9 Cardiomyopathy, unspecified; J44.1 Chronic obstructive pulmonary disease with (acute) exacerbation; J20.9 Acute bronchitis, unspecified; N18.2 Chronic kidney disease, stage 2 (mild); E66.01 Morbid (severe) obesity due to excess calories; K46.9 Unspecified abdominal hernia without obstruction or gangrene; E86.0 Dehydration; G89.29 Other chronic pain; F17.210 Nicotine dependence, cigarettes, uncomplicated; I12.9 Hypertensive chronic kidney disease with stage 1 through stage 4 chronic kidney disease, or unspecified chronic kidney disease; I27.2 Other secondary pulmonary hypertension; J30.9 Allergic rhinitis, unspecified; J98.4 Other disorders of lung; K42.9 Umbilical hernia without obstruction or gangrene; K43.9 Ventral hernia without obstruction or gangrene; K76.0 Fatty (change of) liver, not elsewhere classified; K80.20 Calculus of gallbladder without cholecystitis without obstruction; M19.90 Unspecified osteoarthritis, unspecified site; Z83.3 Family history of diabetes mellitus; Z82.49 Family history of ischemic heart disease and other diseases of the circulatory system
CPT/HCPCS: 36415; 36600; 71010; 74177; 80048; 80053; 82805; 83605; 83735; 85027; 93306; 94060; 94250; 94640; 94760; 96361; 96374; 96375; 99406; J1956; J2405; J2930; J3010; J7030; J7620; Q9967; 99285-25

== ENCOUNTER 2016-08-10 16:53 | Inpatient (IN) | payer OTHER ==
[~2016-08-10] VITALS: Ht 160 cm; Wt 140.6 kg
[~2016-08-10 16:53] MED LIST: BENZ100C PO; BUDE10.2 IH; CETI10TA16 PO; CHOL10002 PO; FLUT16SP NS; LEVO500T59 PO; MONT10TA9 PO; PANT40TA5 PO; PROAIR HFA8.5 GM INH
--- NOTE | 2016-08-10 17:14 | PHYS DOC ---
Past Medical History Past Medical History: No Pertinent History Past Surgical History: No Surgical History Alcohol Use: None Drug Use: None Adult General Chief Complaint Chief Complaint: ABDOMINAL PAIN HPI HPI Patient is a 56 year old female who presents with abdominal pain for the past day. Patient had a ventral hernia for the past 5 years however the past day and is becoming more painful and hard. Patient associates nausea and vomiting. Patient last bowel movement was 2 days ago. Patient denies any fevers or chills. Patient denies a chest pain or shortness of breath. Pertinent physical exam findings: abd: Large ventral hernia that is nonreducible and firm ED Course: 1712: CBC, CMP, lipase, UA, fentanyl, Zofran, normal saline bolus was ordered 1852: I updated the patient on the CT findings and the fact that she possibly has an incarcerated hernia with small bowel obstruction. I explained patient she 'll need to be admitted to the hospital and will contact surgery. 1853: Paged Dr. Castillo 1900: dicussed CC/HPI/PMH with Dr. Castillo who will take the patient to the operating room 1909: Dicussed CC/HPI/PMH with Dr. Whitmore who will admit Pertinent ED findings: Elevate lactated 2.8 and a WBC 12 CT scan shows incarcerated hernia with small bowel obstruction and edema ED decision making: After reviewing the chart, CC/HPI/PMH, PE, Lab results, radiological results she has acute incarcerated ventral hernia with a small bowel obstruction and since the patient has elevated white count and lactic acid surgery will take the patient to the operating room and have medicine admit. Review of Systems Review of Systems Constitutional: Denies fever or chills [] Eyes: Denies change in visual acuity, redness, or eye pain [] All other review systems are negative except for documented in the history of present illness Current Medications Current Medications Current Medications Medications (Trade) Dose Ordered Sig/Sabina Start Time Stop Time Status Last Admin Dose Admin Fentanyl Citrate (Fentanyl 2ml Vial) 75 mcg 1X ONCE 08/10/16 18:45 08/10/16 18:46 DC 08/10/16 18:49 75 MCG Info (Do NOT chart on this entry -- for MONITORING) 1 each PRN DAILY PRN 08/10/16 18:15 08/12/16 18:14 Iohexol (Omnipaque 300 Mg/ml) 75 ml 1X ONCE 08/10/16 18:15 08/10/16 18:16 DC 08/10/16 18:21 60 ML Ondansetron HCl (Zofran) 4 mg 1X ONCE 08/10/16 17:45 08/10/16 17:46 DC 08/10/16 17:19 4 MG Sodium Chloride 1,000 ml @ 1,000 mls/hr 1X ONCE 08/10/16 17:15 08/10/16 18:14 DC 08/10/16 17:19 1,000 MLS/HR Allergies Allergies Allergies Coded Allergies Type Severity Reaction Last Updated Verified No Known Drug Allergies 08/07/16 No Physical Exam Physical Exam Constitutional: Well developed, well nourished, no acute distress, non-toxic appearance. [] HENT: Normocephalic, atraumatic, bilateral external ears normal, oropharynx moist, no oral exudates, nose normal. [] Eyes: PERRLA, EOMI, conjunctiva normal, no discharge. [] Neck: Normal range of motion, no tenderness, supple, no stridor. [] Cardiovascular:Heart rate regular rhythm, no murmur [] Lungs & Thorax: Mild expiratory wheezes bilaterally Abdomen: Hypoactive bowel sounds, ventral hernia that is nonreducible Skin: Warm, dry, no erythema, no rash. [] Back: No tenderness, no CVA tenderness. [] Extremities: No tenderness, no cyanosis, no clubbing, ROM intact, no edema. [] Neurologic: Alert and oriented X 3, normal motor function, normal sensory function, no focal deficits noted. [] Psychologic: Affect normal, judgement normal, mood normal. [] Current Patient Data Vital Signs Vital Signs Date Time Temp Pulse Resp B/P (MAP) Pulse Ox O2 Delivery O2 Flow Rate FiO2 08/10/16 18:49 22 08/10/16 18:00 70 172/86 (114) 95 Nasal Cannula 2.0 08/10/16 17:10 97.6 97.6 Lab Values Laboratory Tests Test 08/10/16 17:10 08/10/16 17:12 08/10/16 17:45 White Blood Count 12.2 x10^3/uL (4.0-11.0) #H Red Blood Count 5.32 x10^6/uL (3.50-5.40) Hemoglobin 16.2 g/dL (12.0-15.5) H Hematocrit 48.1 % (36.0-47.0) H Mean Corpuscular Volume 90 fL (79-100) Mean Corpuscular Hemoglobin 31 pg (25-35) Mean Corpuscular Hemoglobin Concent 34 g/dL (31-37) Red Cell Distribution Width 14.5 % (11.5-14.5) Platelet Count 329 x10^3/uL (140-400) Neutrophils (%) (Auto) 61 % (31-73) Lymphocytes (%) (Auto) 30 % (24-48) Monocytes (%) (Auto) 7 % (0-9) Eosinophils (%) (Auto) 1 % (0-3) Basophils (%) (Auto) 1 % (0-3) Neutrophils # (Auto) 7.5 x10^3uL (1.8-7.7) Lymphocytes # (Auto) 3.6 x10^3/uL (1.0-4.8) Monocytes # (Auto) 0.9 x10^3/uL (0.0-1.1) Eosinophils # (Auto) 0.2 x10^3/uL (0.0-0.7) Basophils # (Auto) 0.1 x10^3/uL (0.0-0.2) Lactic Acid Level 2.8 mmol/L (0.4-2.0) H Sodium Level 139 mmol/L (136-145) Potassium Level 3.9 mmol/L (3.5-5.1) Chloride Level 102 mmol/L (98-107) Carbon Dioxide Level 31 mmol/L (21-32) Anion Gap 6 (6-14) Blood Urea Nitrogen 14 mg/dL (7-20) Creatinine 1.2 mg/dL (0.6-1.0) H Estimated GFR (Cockcroft-Gault) 46.1 BUN/Creatinine Ratio 12 (6-20) Glucose Level 160 mg/dL (70-99) H Calcium Level 8.8 mg/dL (8.5-10.1) Total Bilirubin 0.5 mg/dL (0.2-1.0) Aspartate Amino Transferase (AST) 33 U/L (15-37) Alanine Aminotransferase (ALT) 41 U/L (14-59) Alkaline Phosphatase 95 U/L (46-116) Total Protein 7.6 g/dL (6.4-8.2) Albumin 3.2 g/dL (3.4-5.0) L Albumin/Globulin Ratio 0.7 (1.0-1.7) L Lipase 65 U/L (73-393) L Laboratory Tests 08/10/16 17:10 Laboratory Tests 08/10/16 17:45 EKG EKG [] Radiology/Procedures Radiology/Procedures CT the abdomen and pelvis IMPRESSION 1. Periumbilical ventral abdominal wall hernia containing several loops of small bowel with edema of the herniated segment of the small bowel mesentery similar the prior exam which may indicate incarceration. There is associated low-grade partial small-bowel obstruction likely present which is also stable. No significant change from the prior exam. 2. Gallstone. 3. Probable fatty liver.[] Course & Med Decision Making Course & Med Decision Making Pertinent Labs and Imaging studies reviewed. (See chart for details) [] Dragon Disclaimer Dragon Disclaimer This electronic medical record was generated, in whole or in part, using a voice recognition dictation system. Departure Departure Impression: Primary Impression: Incarcerated hernia Additional Impressions: COPD exacerbation SBO (small bowel obstruction) Disposition: ADMITTED INPATIENT Admitting Physician: Duane Whitmore Condition: STABLE Referrals: DUANE WHITMORE MD (PCP) Problem Qualifiers BRENDEN MAE DO August 10, 2016 17:14
[2016-08-10] MEDS ORDERED: IV NORMAL SALINE 1000ML BAG 1,000 ML IV ONE (17:15)
[2016-08-10 17:20] LABS: BASO # 0.1 x10^3/uL (0.0-0.2); BASO % 1 % (0-3); EOS % 1 % (0-3); HEMATOCRIT 48.1 % (36.0-47.0); HEMOGLOBIN 16.2 g/dL (12.0-15.5); LYMPH # 3.6 x10^3/uL (1.0-4.8); LYMPH % 30 % (24-48); MEAN CORPUSCULAR HEMOGLOBIN 31 pg (25-35); MEAN CORPUSCULAR HGB CONC 34 g/dL (31-37); MEAN CORPUSCULAR VOLUME 90 fL (79-100); MONO % 7 % (0-9); NEUT % 61 % (31-73); PLATELET COUNT 329 x10^3/uL (140-400); RED BLOOD COUNT 5.32 x10^6/uL (3.50-5.40); RED CELL DISTRIBUTION WIDTH 14.5 % (11.5-14.5); WHITE BLOOD COUNT 12.2 x10^3/uL (4.0-11.0)
[2016-08-10] MEDS ORDERED: fentaNYL PF VIAL 100 MCG/2 ML VIAL IV ONE (17:45)
[2016-08-10] MEDS ORDERED: ONDANSETRON PF 4 MG/2 ML VIAL. IV ONE (17:45)
[2016-08-10 18:03] LABS: CALCIUM 8.8 mg/dL (8.5-10.1); CREATININE 1.2 mg/dL (0.6-1.0); GFR 46.1; POTASSIUM 3.9 mmol/L (3.5-5.1)
[2016-08-10 18:08] LABS: ALBUMIN 3.2 g/dL (3.4-5.0); ALBUMIN/GLOBULIN RATIO 0.7 (1.0-1.7); TOTAL BILIRUBIN 0.5 mg/dL (0.2-1.0); TOTAL PROTEIN 7.6 g/dL (6.4-8.2)
[2016-08-10] MEDS ORDERED: IOHEXOL 300 MG/ML 75 ML VIAL IV ONE (18:15)
[2016-08-10] MEDS ORDERED: CONTRAST GIVEN MC PRN (18:15)
--- NOTE | 2016-08-10 18:40 | RAD ---
PROCEDURE CT abdomen and pelvis with contrast HISTORY Severe abdominal pain, large ventral abdominal wall hernia TECHNIQUE Exposure: One or more of the following individualized dose reduction techniques were utilized for this exam: 1. Automated exposure control. 2. Adjustment of the mA and/or kV according to patient size. 3. Use of iterative reconstruction technique. Helical CT imaging abdomen and pelvis with 60 milliliters Omnipaque [address] abdomen and pelvis July 2016 FINDINGS Abdomen: Discoid atelectasis at the lung bases. Small calcified granulomas left lower lobe. Hypodensity of the liver likely fatty. 3 centimeter gallstone. Mild prominent albert hepatis lymph nodes largest short axis diameter 13 millimeters. Pancreas, kidneys, adrenals, spleen unremarkable. No adenopathy. Periumbilical ventral abdominal wall hernia containing several loops of small bowel again demonstrated the size hernia sac is stable, there is edema of the mesentery within the hernia sac which is also stable, there is mild distention of the more proximal small bowel with air-fluid levels similar the prior exam which could represent low-grade partial small bowel obstruction. No fluid or wall thickening or pneumatosis of the herniated loops do confirm ischemic change. Appendix not identified. No abdominal fluid. Lower lumbar spine disc bulges. Pelvis: Uterus, ovaries, bladder, rectum and bones unremarkable. No fluid or adenopathy. IMPRESSION 1. Periumbilical ventral abdominal wall hernia containing several loops of small bowel with edema of the herniated segment of the small bowel mesentery similar the prior exam which may indicate incarceration. There is associated low-grade partial small-bowel obstruction likely present which is also stable. No significant change from the prior exam. 2. Gallstone. 3. Probable fatty liver. Electronically signed by: Jagdish Cristobal MD (August 10, 2016 18:39:41)
[2016-08-10] MEDS ORDERED: fentaNYL PF VIAL 100 MCG/2 ML VIAL IM ONE (18:45)
[2016-08-10] MEDS: IV NORMAL SALINE 1000ML BAG 1,000 ML IV SCH (19:10)
[2016-08-10] MEDS ORDERED: fentaNYL PF VIAL 100 MCG/2 ML VIAL IV PRN ×2 (19:15→20:30)
[2016-08-10] MEDS ORDERED: ONDANSETRON PF 4 MG/2 ML VIAL. IV PRN ×2 (19:15→22:00)
--- NOTE | 2016-08-10 20:08 | PDOC2 ---
CONSULT Date of Consult Date of Consult DATE: 08/10/16 TIME: 19:56 Reason for Consult Reason for Consult: Abd pain Referring Physician Referring Physician: Hank Identification/Chief Complaint Chief Complaint Abd pain with N/V Source Source: Patient History of Present Illness Reason for Visit: 56 yo female with know ventral hernia for 5 years but recently became very painful and hard. She has had a recent bout of bronchitis with coughing. Has had N/V and elevated lactic acid Past Medical History Cardiovascular: HTN Pulmonary: COPD GI: Other Musculoskeletal: Osteoarthritis Endocrine: Other Past Surgical History Past Surgical History: , Other (C spine fusion) Family History Family History: Coronary Artery Disease, Diabetes Social History No ALCOHOL: none Lives: with Family Current Problem List Problem List Problems Medical Problems: (1) COPD exacerbation Status: Acute (2) Incarcerated hernia Status: Acute (3) SBO (small bowel obstruction) Status: Acute Current Medications Current Medications Current Medications Fentanyl Citrate (Fentanyl 2ml Vial) 50 mcg 1X ONCE IV Last administered on 17:19; Start 08/10/16 at 17:45; Stop 08/10/16 at 17:46; Status DC Sodium Chloride 1,000 ml @ 1,000 mls/hr 1X ONCE IV Last administered on 17:19; Start 08/10/16 at 17:15; Stop 08/10/16 at 18:14; Status DC Ondansetron HCl (Zofran) 4 mg 1X ONCE IV Last administered on 08/10/16 17:19 ; Start 08/10/16 at 17:45; Stop 08/10/16 at 17:46; Status DC Iohexol (Omnipaque 300 Mg/ml) 75 ml 1X ONCE IV Last administered on 08/10/16 18:21; Start 08/10/16 at 18:15; Stop 08/10/16 at 18:16; Status DC Info (Do NOT chart on this entry -- for MONITORING) 1 each PRN DAILY PRN MC SEE COMMENTS; Start 08/10/16 at 18:15; Stop 08/12/16 at 18:14 Fentanyl Citrate (Fentanyl 2ml Vial) 75 mcg 1X ONCE IM Last administered on 18:49; Start 08/10/16 at 18:45; Stop 08/10/16 at 18:46; Status DC Ondansetron HCl (Zofran) 4 mg PRN Q8HRS PRN IV NAUSEA/VOMITING; Start 08/10/16 at 19:15; Stop 08/11/16 at 19:14 Fentanyl Citrate (Fentanyl 2ml Vial) 50 mcg PRN Q1HR PRN IV PAIN; Start at 19:15; Stop 08/11/16 at 19:14 Sodium Chloride 1,000 ml @ 100 mls/hr Q10H IV ; Start 08/10/16 at 19:10; Stop 08/11/16 at 19:09 Active Scripts Active Tessalon Perle (Benzonatate) 100 Mg Capsule 1 Cap PO PRN TID Proair Hfa Inhaler (Albuterol Sulfate) 8.5 Gm Hfa.aer.ad 2 Puff INH PRN QID PRN Symbicort 160-4.5 Mcg Inhaler (Budesonide/Formoterol Fumarate) 10.2 Gm Hfa.aer.ad 2 Puff IH BID Levaquin (Levofloxacin) 500 Mg Tablet 500 Mg PO DAILY Pantoprazole Sodium 40 Mg Tablet.dr 40 Mg PO DAILYAC Montelukast Sodium Tablet (Montelukast Sodium) 10 Mg Tablet 10 Mg PO QHS Fluticasone Propionate Nasal Harris (Fluticasone Propionate) 16 Gm Harris.susp 2 Harris NS DAILY Vitamin D (Cholecalciferol (Vitamin D3)) 1,000 Unit Tablet 2,000 Unit PO DAILY Cetirizine Hcl 10 Mg Tablet 10 Mg PO HS Allergies Allergies: Coded Allergies: No Known Drug Allergies (Unverified , 08/07/16) ROS Gastrointestinal: Yes Nausea, Yes Vomiting, Yes Abdominal Pain Physical Exam General: Alert, Oriented X3, Cooperative, moderate distress HEENT: Atraumatic, PERRLA, EOMI Lungs: Clear to auscultation, Normal air movement Heart: Regular rate, No murmurs Abdomen: Normal bowel sounds, Soft, Other (Tender vental hernia) Extremities: No clubbing, No cyanosis, No edema Skin: No significant lesion Neuro: Normal speech Vitals VITALS Vital Signs Date Time Temp Pulse Resp B/P (MAP) Pulse Ox O2 Delivery O2 Flow Rate FiO2 08/10/16 18:49 22 08/10/16 18:00 70 172/86 (114) 95 Nasal Cannula 2.0 08/10/16 17:10 97.6 97.6 Labs Labs Laboratory Tests Test 08/10/16 17:10 08/10/16 17:12 08/10/16 17:45 White Blood Count 12.2 x10^3/uL (4.0-11.0) Red Blood Count 5.32 x10^6/uL (3.50-5.40) Hemoglobin 16.2 g/dL (12.0-15.5) Hematocrit 48.1 % (36.0-47.0) Mean Corpuscular Volume 90 fL (79-100) Mean Corpuscular Hemoglobin 31 pg (25-35) Mean Corpuscular Hemoglobin Concent 34 g/dL (31-37) Red Cell Distribution Width 14.5 % (11.5-14.5) Platelet Count 329 x10^3/uL (140-400) Neutrophils (%) (Auto) 61 % (31-73) Lymphocytes (%) (Auto) 30 % (24-48) Monocytes (%) (Auto) 7 % (0-9) Eosinophils (%) (Auto) 1 % (0-3) Basophils (%) (Auto) 1 % (0-3) Neutrophils # (Auto) 7.5 x10^3uL (1.8-7.7) Lymphocytes # (Auto) 3.6 x10^3/uL (1.0-4.8) Monocytes # (Auto) 0.9 x10^3/uL (0.0-1.1) Eosinophils # (Auto) 0.2 x10^3/uL (0.0-0.7) Basophils # (Auto) 0.1 x10^3/uL (0.0-0.2) Lactic Acid Level 2.8 mmol/L (0.4-2.0) Sodium Level 139 mmol/L (136-145) Potassium Level 3.9 mmol/L (3.5-5.1) Chloride Level 102 mmol/L (98-107) Carbon Dioxide Level 31 mmol/L (21-32) Anion Gap 6 (6-14) Blood Urea Nitrogen 14 mg/dL (7-20) Creatinine 1.2 mg/dL (0.6-1.0) Estimated GFR (Cockcroft-Gault) 46.1 BUN/Creatinine Ratio 12 (6-20) Glucose Level 160 mg/dL (70-99) Calcium Level 8.8 mg/dL (8.5-10.1) Total Bilirubin 0.5 mg/dL (0.2-1.0) Aspartate Amino Transf (AST/SGOT) 33 U/L (15-37) Alanine Aminotransferase (ALT/SGPT) 41 U/L (14-59) Alkaline Phosphatase 95 U/L (46-116) Total Protein 7.6 g/dL (6.4-8.2) Albumin 3.2 g/dL (3.4-5.0) Albumin/Globulin Ratio 0.7 (1.0-1.7) Lipase 65 U/L (73-393) Laboratory Tests Test 08/10/16 17:10 08/10/16 17:12 08/10/16 17:45 White Blood Count 12.2 x10^3/uL (4.0-11.0) Red Blood Count 5.32 x10^6/uL (3.50-5.40) Hemoglobin 16.2 g/dL (12.0-15.5) Hematocrit 48.1 % (36.0-47.0) Mean Corpuscular Volume 90 fL (79-100) Mean Corpuscular Hemoglobin 31 pg (25-35) Mean Corpuscular Hemoglobin Concent 34 g/dL (31-37) Red Cell Distribution Width 14.5 % (11.5-14.5) Platelet Count 329 x10^3/uL (140-400) Neutrophils (%) (Auto) 61 % (31-73) Lymphocytes (%) (Auto) 30 % (24-48) Monocytes (%) (Auto) 7 % (0-9) Eosinophils (%) (Auto) 1 % (0-3) Basophils (%) (Auto) 1 % (0-3) Neutrophils # (Auto) 7.5 x10^3uL (1.8-7.7) Lymphocytes # (Auto) 3.6 x10^3/uL (1.0-4.8) Monocytes # (Auto) 0.9 x10^3/uL (0.0-1.1) Eosinophils # (Auto) 0.2 x10^3/uL (0.0-0.7) Basophils # (Auto) 0.1 x10^3/uL (0.0-0.2) Lactic Acid Level 2.8 mmol/L (0.4-2.0) Sodium Level 139 mmol/L (136-145) Potassium Level 3.9 mmol/L (3.5-5.1) Chloride Level 102 mmol/L (98-107) Carbon Dioxide Level 31 mmol/L (21-32) Anion Gap 6 (6-14) Blood Urea Nitrogen 14 mg/dL (7-20) Creatinine 1.2 mg/dL (0.6-1.0) Estimated GFR (Cockcroft-Gault) 46.1 BUN/Creatinine Ratio 12 (6-20) Glucose Level 160 mg/dL (70-99) Calcium Level 8.8 mg/dL (8.5-10.1) Total Bilirubin 0.5 mg/dL (0.2-1.0) Aspartate Amino Transf (AST/SGOT) 33 U/L (15-37) Alanine Aminotransferase (ALT/SGPT) 41 U/L (14-59) Alkaline Phosphatase 95 U/L (46-116) Total Protein 7.6 g/dL (6.4-8.2) Albumin 3.2 g/dL (3.4-5.0) Albumin/Globulin Ratio 0.7 (1.0-1.7) Lipase 65 U/L (73-393) Images Images CT shows incarcerated vental hernia with small bowel obstruction Assessment/Plan Assessment/Plan Incarcerated, strangulated ventral hernia Plan xlap with repair COLTEN ASH MD August 10, 2016 20:08
[2016-08-10] MEDS ORDERED: ceFAZolin 1GM IVPB FOR OMNI 1 GM/50 ML BAG IV SCH (20:15)
[2016-08-10] MEDS ORDERED: DESFLURANE 61 TO 120 MINUTES IH ONE (20:23)
[2016-08-10] MEDS ORDERED: fentaNYL PF VIAL 100 MCG/2 ML VIAL ONE ×2 (20:23→21:32)
[2016-08-10] MEDS ORDERED: MIDAZOLAM HCL/PF 2 MG/2 ML VIAL. ONE (20:23)
[2016-08-10] MEDS ORDERED: ROCURONIUM 50 MG/5 ML VIAL. ONE ×2 (20:23→21:32)
[2016-08-10] MEDS ORDERED: ONDANSETRON PF 4 MG/2 ML VIAL. ONE (20:25)
[2016-08-10] MEDS ORDERED: PROPOFOL 20 ML IV ONE (20:25)
[2016-08-10] MEDS ORDERED: DEXAMETHASONE SOD PHOS 20 MG/5 ML VIAL. ONE (20:25)
[2016-08-10] MEDS ORDERED: LIDOCAINE 2% 100 MG/5 ML SYRINGE. ONE (20:25)
[2016-08-10] MEDS ORDERED: SUCCINYLCHOLINE 200 MG/10 ML VIAL. ONE (20:25)
[2016-08-10] MEDS ORDERED: IV RINGERS,LACTATED 1000ML 1,000 ML IV SCH (20:26)
[2016-08-10] MEDS ORDERED: MORPHINE SULFATE 2 MG/ML DISP.SYRIN. IV PRN ×2 (20:30→22:00)
[2016-08-10] MEDS ORDERED: LIDOCAINE 1% 1 ML SYRINGE. ID PRN (20:30)
[2016-08-10] MEDS ORDERED: HYDROmorphone 2 MG/ML VIAL IV PRN (20:30)
[2016-08-10] MEDS ORDERED: PROCHLORPERAZINE 10 MG/2 ML VIAL. IV PRN (20:30)
[2016-08-10] MEDS ORDERED: BUPIVACAINE-EPI 0.25%-1:200000 MPF 30 ML VIAL. ONE (20:31)
[2016-08-10] MEDS ORDERED: GLYCOPYRROLATE 1 MG/5 ML VIAL. ONE (20:51)
[2016-08-10] MEDS ORDERED: NEOSTIGMINE METHYLSULFATE 5 MG/5 ML SYRINGE. ONE (20:51)
[2016-08-10] MEDS ORDERED: PHENYLEPHRINE in 0.9% NACL PF 1 MG/10 ML DISP.SYRIN. IV ONE (21:18)
[2016-08-10] MEDS ORDERED: 0.9 % SODIUM CHLORIDE 10 ML DISP.SYRIN. IV PRN (22:00)
--- NOTE | 2016-08-10 22:00 | PDOC ---
BRIEF OPERATIVE NOTE Date: August 10, 2016 Pre-Op Diagnosis Strangulated ventral hernia Post-Op Diagnosis Same Procedure Performed exploratory laparotomy with reduction of hernia and repair with mesh Surgeon Jonathan Anesthesia Type: General Blood Loss 30ml Specimens Obtained hernia sack Findings as above Complications None COLTEN ASH MD August 10, 2016 22:00
--- NOTE | 2016-08-10 22:23 | OP ---
DATE OF SURGERY: 08/10/2016 PREOPERATIVE DIAGNOSIS: Incarcerated strangulated ventral hernia. POSTOPERATIVE DIAGNOSIS: Incarcerated strangulated ventral hernia. PROCEDURE: Exploratory laparotomy with repair of ventral hernia with mesh. SURGEON: Tevin Ash MD INDICATIONS: The patient is a 56-year-old female who was admitted to the hospital with abdominal pain, a known hernia by CT scan showing incarcerated bowel with obstruction and elevated lactic acid. Procedure of exploratory laparotomy with repair of hernia, possible small bowel resection was explained to the patient in detail. Risks, benefits were also discussed including bleeding, infection, injury to intra-abdominal contents, possibly necessitating further operations. Alternatives of the procedure were also discussed with patient who seemed to understand and gave verbal and written consent to have the procedure performed. DESCRIPTION OF PROCEDURE: The patient was taken to the operating room and placed in the supine position, general anesthesia was initiated. Once the patient was asleep and intubated, her abdomen was prepped and draped in usual sterile fashion using ChloraPrep. A midline incision was made over the bulge. This was carried down through the subcutaneous tissue using electrocautery to provide hemostasis down to the hernia sac. Hernia sac was opened with Metzenbaum scissors and further opened with electrocautery down to the fascia. The fascia was opened about other 2 cm with electrocautery. This allowed for enough space to reduce all the hernia contents. The bowel was quite pink, no evidence of compromise. There were some adhesions to the hernia sac, which were taken down with electrocautery. Once the contents were reduced completely the hernia sac was excised sharply and sent for pathology. A ____ mesh 8 x 14 was placed within the hernia defect. This was sewn into place with interrupted 0 PDS sutures. The fascia was then closed with a running #1 looped PDS. The subcutaneous space was irrigated and suctioned dry. A 10 mm flat JONNIE drain was placed in subcutaneous space, was brought out through a separate stab incision on the left side of the abdomen, sewn in place with 2-0 silk ties. The deep subcutaneous layer was closed with running 3-0 Vicryl and the skin was reapproximated with 4-0 subcuticular Monocryl. Mastisol, Steri-Strips, 4 x 4's and Medipore tape were applied as dressings. The patient was awakened, extubated in the operating room, taken to recovery in stable condition. All sponge, instrument counts listed as correct. Estimated blood loss is 30 mL. TEVIN ASH MD DR: CAMI/sree JOB#: [id number] / [id number] DUANE Treadwell MD
[2016-08-10] MEDS ORDERED: ALBUTEROL SULFATE 2.5 MG/3 ML NEBU. NEB PRN (22:45)
[2016-08-10] MEDS: fentaNYL PF VIAL 100 MCG/2 ML VIAL IV PRN ×3 (23:07→23:56)
[2016-08-10 23:35] LABS: HCO3 ABG 24 mmol/L (21-28); PCO2 ABG 52 mmHg (35-46); PH ABG 7.29 (7.35-7.45); PO2 ABG 235 mmHg (75-108); SAT O2 ABG 99 % (92-99)
[2016-08-10 23:47] LABS: FIO2 ABG 100
[2016-08-11] VITALS (11 sets, daily range): BP systolic 121–161; BP diastolic 65–108
[2016-08-11] MEDS: IV DEXTROSE 5%-LACT RINGERS 1,000 ML IV SCH ×3 (00:22→15:30)
[2016-08-11] MEDS: KETOROLAC 15 MG/ML VIAL. IV SCH ×4 (00:22→17:26)
--- NOTE | 2016-08-11 00:23 | ACF ---
Admission Forms Criteria ABDOMINAL PAIN Clinical Indications for Admission to Inpatient Care (Place 'X' for any and all applicable criteria): Admission is indicated for ANY ONE of the following(1)(2)(3)(4)(5): [X]I. Inpatient admission required rather than observation care (Also use Abdominal Pain: Observation Care, as appropriate) because of ANY ONE of the following: [ ]a) Severe pain requiring acute inpatient management [X]b) Identification of etiology/finding that requires inpatient care (eg, aortic dissection, free air) [ ]c) Absent bowel sounds with complete ileus(6) [ ]d) Suspected toxic megacolon [ ]e) Severe electrolyte abnormalities requiring inpatient care [ ]f) High fever or infection requiring inpatient admission as indicated by ANY ONE of following(7)(8): [ ] i) Appropriate outpatient or observational care antimicrobial treatment unavailable, not effective, or not feasible [ ] ii) Documented bacteremia [ ] iii) Temperature > 104.9 degrees F (oral) [ ] iv) T >103.1 F (oral) or < 96.8 F(rectal) that does not respond to all emergency treatment measures [ ]g) Signs of intestinal obstruction [B] [ ]h) Hemodynamic instability [ ]i) IV fluid to replace significant ongoing losses (greater than 3 L/m2 per day) (12)(13) [ ]j) Percutaneous or open drainage (eg, abscess, biliary tract ) procedures [ ]k) Parenteral nutrition regimen that must be implemented on inpatient basis [ ]l) Other condition,treatment or monitoring requiring inpatient admission. [ ]II. Peritoneal signs present [X]III. Surgery needed that cannot be performed on an ambulatory basis. [ ]IV. Evaluation requires patient to not eat or drink for extended period ( eg, more than 24 hours). [ ]V. Contraindications and/or Inappropriate clinical situations for Observational Care in patients with abdominal pain, when ANY ONE of the following is required: [ ]a) Thorough evaluation is required to prevent catastrophic events due to delays in diagnosing (e.g.Mesenteric ischemia) 1,3 [ ]b) Patient with severe pathology or with chronic symptoms unlikely to improve in the ED stay (3) [ ]. General contraindications and/or Inappropriate clinical situations for Observational Care in patients with abdominal pain, when ANY ONE of the following is required: [ ]a) Prediction of prolongation of LOS based on ANY ONE of the following may be considered as a contraindication for observational care 2, 3, 4, 5, 6, 7, 8, 9, 10, 11 [ ]i) Age > 65 yrs. [ ]ii) Patient arriving by ambulance [ ]iii) Patient with high acuity [ ]iv) Patient requiring vital sign monitoring [ ]v) Patient on IV medication [ ]b) Systolic blood pressures 180mmHg 3,12 [ ]c) Patient with altered mental status including delirium and other alteration of consciousness, (3) [ ]d) Patient whose discharge disposition will be to a fpc home or rehabilitation home should not be managed in Emergency Department Observation Unit. CMS rule requires 3 days hospital stay before such placement.3,13 [ ]e) Patient with failure to thrive due to broad array of etiologies 3,16,17 [ ]f) Inability to ambulate 3,14 Extended stay beyond goal length of stay may be needed for(2)(3): [ ]a) Persistent abdominal pain with suspected intra-abdominal process [ ]b) Diagnosed condition requiring continued stay (e.g., pancreatitis, complicated diverticulitis) [ ]c) Surgery (e.g., colectomy) The original [employer] [facility] content created by [employer] has been revised. The portions of the content which have been revised are identified through the use of italic text or in bold, and [facility] has neither reviewed nor approved the modified material.All other unmodified content is copyright [employer]. Please see references footnoted in the original [employer] edition 2016 Admission Criteria Met?: Yes EARNEST ALCALA August 11, 2016 00:23
[2016-08-11] MEDS: IV NORMAL SALINE 1000ML BAG 1,000 ML IV SCH ×2 (05:10→15:09)
[2016-08-11 05:46] LABS: BASO % 0 % (0-3); EOS % 0 % (0-3); HEMATOCRIT 43.6 % (36.0-47.0); HEMOGLOBIN 14.6 g/dL (12.0-15.5); LYMPH # 1.2 x10^3/uL (1.0-4.8); LYMPH % 10 % (24-48); MEAN CORPUSCULAR HEMOGLOBIN 30 pg (25-35); MEAN CORPUSCULAR HGB CONC 34 g/dL (31-37); MEAN CORPUSCULAR VOLUME 90 fL (79-100); MONO % 4 % (0-9); NEUT % 85 % (31-73); PLATELET COUNT 307 x10^3/uL (140-400); RED BLOOD COUNT 4.84 x10^6/uL (3.50-5.40); RED CELL DISTRIBUTION WIDTH 14.8 % (11.5-14.5); WHITE BLOOD COUNT 11.8 x10^3/uL (4.0-11.0)
[2016-08-11 06:06] LABS: CALCIUM 8.4 mg/dL (8.5-10.1); CREATININE 1.2 mg/dL (0.6-1.0); GFR 46.1; POTASSIUM 4.4 mmol/L (3.5-5.1)
--- NOTE | 2016-08-11 06:24 | PDOC1 ---
EMILIE GILL PHARMACY MESSENGER 08/11/16 0624: HISTORY AND PHYSICAL Chief Complaint Chief Complaint This 56 year old female has been admitted with a chief complaint of abdominal pain. She was discharged after treatment for acute bronchitis, AECOPD and abdominal pain at hernia from coughing. She reports that she was okay until yesterday when she started acute abdominal pain that would not let up. She reported to the ED. A CT of the abd/pelvis revealed incarcerated periumbilical hernia, PSBO and edema. A emergent exploratory lap with reduction of hernia and repair with mesh was performed by Dr. Castillo. Postoperatively she required BIPAP. She is admitted to medical surgical unit. Problem List Problems Medical Problems: (1) COPD exacerbation Status: Acute (2) Incarcerated hernia Status: Acute (3) SBO (small bowel obstruction) Status: Acute Past Medical History Cardiovascular: HTN GI: Other (fatty liver, GS ) Musculoskeletal: Osteoarthritis (h/o chronic L knee pain with h/o injections ) ENT: Allergic Rhinitis Endocrine: Other (vitamin D def, morbid obesity BMI 50-59) Past Surgical History Past Surgical History: , Other (c spine fusion 2012) Past Family History Family History: Coronary Artery Disease, Diabetes Past Social History PSH + tobacco, neg ETOH or illicit drug use Review of Symptoms Review of Symptoms A 14 point ROS was completed with the following noted as positive: wheezing, abdominal pain r/t surgery Other systems reviewed and negative. Medications Medications reviewed and reconciled for admission. Allergy Allergies Coded Allergies Type Severity Reaction Last Updated Verified No Known Drug Allergies 08/10/16 No Physical Exam Physical Exam General appearance - alert,well appearing, and in no distress Mental Status - alert, oriented to person, place, and time, affect appropriate to mood Head - normal Chest - wheezing mod coarse. Heart - S1 and S2 normal Abdomen - soft, + tender, nondistended, BS +, dressing intact Neurological - no acute focal neurological deficit Musculoskeletal - no muscular tenderness noted Extremities - no pedal edema Skin - warm and dry VTE Prophylaxis Ordered VTE Prophylaxis Devices: Yes VTE Pharmacological Prophylaxi: No Assessment Labs Laboratory Tests Test 08/10/16 17:10 08/10/16 17:12 08/10/16 17:45 08/10/16 23:30 White Blood Count 12.2 x10^3/uL (4.0-11.0) Red Blood Count 5.32 x10^6/uL (3.50-5.40) Hemoglobin 16.2 g/dL (12.0-15.5) Hematocrit 48.1 % (36.0-47.0) Mean Corpuscular Volume 90 fL (79-100) Mean Corpuscular Hemoglobin 31 pg (25-35) Mean Corpuscular Hemoglobin Concent 34 g/dL (31-37) Red Cell Distribution Width 14.5 % (11.5-14.5) Platelet Count 329 x10^3/uL (140-400) Neutrophils (%) (Auto) 61 % (31-73) Lymphocytes (%) (Auto) 30 % (24-48) Monocytes (%) (Auto) 7 % (0-9) Eosinophils (%) (Auto) 1 % (0-3) Basophils (%) (Auto) 1 % (0-3) Neutrophils # (Auto) 7.5 x10^3uL (1.8-7.7) Lymphocytes # (Auto) 3.6 x10^3/uL (1.0-4.8) Monocytes # (Auto) 0.9 x10^3/uL (0.0-1.1) Eosinophils # (Auto) 0.2 x10^3/uL (0.0-0.7) Basophils # (Auto) 0.1 x10^3/uL (0.0-0.2) Lactic Acid Level 2.8 mmol/L (0.4-2.0) Sodium Level 139 mmol/L (136-145) Potassium Level 3.9 mmol/L (3.5-5.1) Chloride Level 102 mmol/L (98-107) Carbon Dioxide Level 31 mmol/L (21-32) Anion Gap 6 (6-14) Blood Urea Nitrogen 14 mg/dL (7-20) Creatinine 1.2 mg/dL (0.6-1.0) Estimated GFR (Cockcroft-Gault) 46.1 BUN/Creatinine Ratio 12 (6-20) Glucose Level 160 mg/dL (70-99) Calcium Level 8.8 mg/dL (8.5-10.1) Total Bilirubin 0.5 mg/dL (0.2-1.0) Aspartate Amino Transf (AST/SGOT) 33 U/L (15-37) Alanine Aminotransferase (ALT/SGPT) 41 U/L (14-59) Alkaline Phosphatase 95 U/L (46-116) Total Protein 7.6 g/dL (6.4-8.2) Albumin 3.2 g/dL (3.4-5.0) Albumin/Globulin Ratio 0.7 (1.0-1.7) Lipase 65 U/L (73-393) O2 Saturation 99 % (92-99) Arterial Blood pH 7.29 (7.35-7.45) Arterial Blood pCO2 at Patient Temp 52 mmHg (35-46) Arterial Blood pO2 at Patient Temp 235 mmHg (75-108) Arterial Blood HCO3 24 mmol/L (21-28) Arterial Blood Base Excess -3 mmol/L (-3-3) FiO2 100 Test 08/11/16 05:23 White Blood Count 11.8 x10^3/uL (4.0-11.0) Red Blood Count 4.84 x10^6/uL (3.50-5.40) Hemoglobin 14.6 g/dL (12.0-15.5) Hematocrit 43.6 % (36.0-47.0) Mean Corpuscular Volume 90 fL (79-100) Mean Corpuscular Hemoglobin 30 pg (25-35) Mean Corpuscular Hemoglobin Concent 34 g/dL (31-37) Red Cell Distribution Width 14.8 % (11.5-14.5) Platelet Count 307 x10^3/uL (140-400) Neutrophils (%) (Auto) 85 % (31-73) Lymphocytes (%) (Auto) 10 % (24-48) Monocytes (%) (Auto) 4 % (0-9) Eosinophils (%) (Auto) 0 % (0-3) Basophils (%) (Auto) 0 % (0-3) Neutrophils # (Auto) 10.0 x10^3uL (1.8-7.7) Lymphocytes # (Auto) 1.2 x10^3/uL (1.0-4.8) Monocytes # (Auto) 0.5 x10^3/uL (0.0-1.1) Eosinophils # (Auto) 0.0 x10^3/uL (0.0-0.7) Basophils # (Auto) 0.0 x10^3/uL (0.0-0.2) Sodium Level 140 mmol/L (136-145) Potassium Level 4.4 mmol/L (3.5-5.1) Chloride Level 105 mmol/L (98-107) Carbon Dioxide Level 28 mmol/L (21-32) Anion Gap 7 (6-14) Blood Urea Nitrogen 13 mg/dL (7-20) Creatinine 1.2 mg/dL (0.6-1.0) Estimated GFR (Cockcroft-Gault) 46.1 Glucose Level 146 mg/dL (70-99) Calcium Level 8.4 mg/dL (8.5-10.1) Laboratory Tests Test 08/10/16 17:10 08/10/16 17:12 08/10/16 17:45 08/10/16 23:30 White Blood Count 12.2 x10^3/uL (4.0-11.0) Red Blood Count 5.32 x10^6/uL (3.50-5.40) Hemoglobin 16.2 g/dL (12.0-15.5) Hematocrit 48.1 % (36.0-47.0) Mean Corpuscular Volume 90 fL (79-100) Mean Corpuscular Hemoglobin 31 pg (25-35) Mean Corpuscular Hemoglobin Concent 34 g/dL (31-37) Red Cell Distribution Width 14.5 % (11.5-14.5) Platelet Count 329 x10^3/uL (140-400) Neutrophils (%) (Auto) 61 % (31-73) Lymphocytes (%) (Auto) 30 % (24-48) Monocytes (%) (Auto) 7 % (0-9) Eosinophils (%) (Auto) 1 % (0-3) Basophils (%) (Auto) 1 % (0-3) Neutrophils # (Auto) 7.5 x10^3uL (1.8-7.7) Lymphocytes # (Auto) 3.6 x10^3/uL (1.0-4.8) Monocytes # (Auto) 0.9 x10^3/uL (0.0-1.1) Eosinophils # (Auto) 0.2 x10^3/uL (0.0-0.7) Basophils # (Auto) 0.1 x10^3/uL (0.0-0.2) Lactic Acid Level 2.8 mmol/L (0.4-2.0) Sodium Level 139 mmol/L (136-145) Potassium Level 3.9 mmol/L (3.5-5.1) Chloride Level 102 mmol/L (98-107) Carbon Dioxide Level 31 mmol/L (21-32) Anion Gap 6 (6-14) Blood Urea Nitrogen 14 mg/dL (7-20) Creatinine 1.2 mg/dL (0.6-1.0) Estimated GFR (Cockcroft-Gault) 46.1 BUN/Creatinine Ratio 12 (6-20) Glucose Level 160 mg/dL (70-99) Calcium Level 8.8 mg/dL (8.5-10.1) Total Bilirubin 0.5 mg/dL (0.2-1.0) Aspartate Amino Transf (AST/SGOT) 33 U/L (15-37) Alanine Aminotransferase (ALT/SGPT) 41 U/L (14-59) Alkaline Phosphatase 95 U/L (46-116) Total Protein 7.6 g/dL (6.4-8.2) Albumin 3.2 g/dL (3.4-5.0) Albumin/Globulin Ratio 0.7 (1.0-1.7) Lipase 65 U/L (73-393) O2 Saturation 99 % (92-99) Arterial Blood pH 7.29 (7.35-7.45) Arterial Blood pCO2 at Patient Temp 52 mmHg (35-46) Arterial Blood pO2 at Patient Temp 235 mmHg (75-108) Arterial Blood HCO3 24 mmol/L (21-28) Arterial Blood Base Excess -3 mmol/L (-3-3) FiO2 100 Test 08/11/16 05:23 White Blood Count 11.8 x10^3/uL (4.0-11.0) Red Blood Count 4.84 x10^6/uL (3.50-5.40) Hemoglobin 14.6 g/dL (12.0-15.5) Hematocrit 43.6 % (36.0-47.0) Mean Corpuscular Volume 90 fL (79-100) Mean Corpuscular Hemoglobin 30 pg (25-35) Mean Corpuscular Hemoglobin Concent 34 g/dL (31-37) Red Cell Distribution Width 14.8 % (11.5-14.5) Platelet Count 307 x10^3/uL (140-400) Neutrophils (%) (Auto) 85 % (31-73) Lymphocytes (%) (Auto) 10 % (24-48) Monocytes (%) (Auto) 4 % (0-9) Eosinophils (%) (Auto) 0 % (0-3) Basophils (%) (Auto) 0 % (0-3) Neutrophils # (Auto) 10.0 x10^3uL (1.8-7.7) Lymphocytes # (Auto) 1.2 x10^3/uL (1.0-4.8) Monocytes # (Auto) 0.5 x10^3/uL (0.0-1.1) Eosinophils # (Auto) 0.0 x10^3/uL (0.0-0.7) Basophils # (Auto) 0.0 x10^3/uL (0.0-0.2) Sodium Level 140 mmol/L (136-145) Potassium Level 4.4 mmol/L (3.5-5.1) Chloride Level 105 mmol/L (98-107) Carbon Dioxide Level 28 mmol/L (21-32) Anion Gap 7 (6-14) Blood Urea Nitrogen 13 mg/dL (7-20) Creatinine 1.2 mg/dL (0.6-1.0) Estimated GFR (Cockcroft-Gault) 46.1 Glucose Level 146 mg/dL (70-99) Calcium Level 8.4 mg/dL (8.5-10.1) Plan Plan IMPRESSION: 1. abdominal pain r/t incarcerated periumbilical hernia, PSBO s/p exp lap, hernia rpr with mesh 08/10/16 2. acute bronchitis 3. acute hypercapnic respiratory failure post op with suspected OHS/OCTAVIA 4. CKD II 5. suspected COPD with h/o smoking since 16yo with exacerbation 6. HTN 7. fatty liver 8. cholelithiasis asymptomatic 9. chronic L knee pain OA 10. morbid obesity with BMI 50-59 11. allergic rhinitis PLAN: abdominal pain Lactic acid 2.8 s/p hernia repair per Dr. Castillo 08/10 WBC admit 12.2 08/01 11.8 Solumedrol 100mg IV 08/09 prior to last DC Decadron in surgery Pain control: Toradol scheduled dose post op, has had no narcotics. acute hypercapnic respiratory failure/AB;AE suspected COPD duoneb with budesonide in place Symbicort BIPAP post op for hypercapnia O2 3L this morning, ABGs pending 08/11 DVT/GI prophylaxis SCD/Amber PPI For more details regarding further plans, please refer to the orders. DUANE WHITMORE MD 08/11/16 1024: HISTORY AND PHYSICAL Plan Plan Improving. still has occasional wheezes.Had solumedrol, Decadron yesterday. Give one dose today. The patient was seen and examined by me. Chart reviewed and plan of care formulated. Discussed with, reviewed and agree with PEDIATRIC ONCOLOGY NURSE's notes, plan of care and orders with modifications as necessary. For more details regarding further plans, please refer to the orders. EMILIE GILL APRN August 11, 2016 06:24 DUANE WHITMORE MD August 11, 2016 10:24
[2016-08-11 06:43] LABS: PLT ESTIMATE ADEQUATE (ADEQUATE)
[2016-08-11] MEDS ORDERED: ALBUTEROL SULFATE 2.5 MG/3 ML NEBU. NEB PRN (06:45)
[2016-08-11] MEDS: BUDESONIDE 0.5 MG/2 ML NEBU. NEB SCH ×2 (07:04→20:00)
[2016-08-11] MEDS: IPRATRPIUM/ALBUTEROL 0.5/2.5MG 3 ML NEBU. NEB SCH ×4 (07:04→20:00)
[2016-08-11] MEDS: PANTOPRAZOLE 40 MG TABLET.DR. PO SCH ×2 (07:30→09:00)
--- NOTE | 2016-08-11 07:36 | RAD ---
Exam performed: One view chest. History: Postop shortness of air. Date of service: 08/11/16. Comparison: 08/07/16. Single AP upright portable view chest findings: Mild cardiomegaly. The pulmonary vascularity is unremarkable. Streaky linear opacities had the left in both lung bases. No pleural effusion or pneumothorax. Postoperative changes in the lower cervical spine Impression: Stable mild cardiomegaly. Interval development of bibasilar atelectasis.
[2016-08-11 08:32] LABS: HCO3 ABG 24 mmol/L (21-28); PCO2 ABG 38 mmHg (35-46); PH ABG 7.41 (7.35-7.45); PO2 ABG 61 mmHg (75-108); SAT O2 ABG 92 % (92-99)
[2016-08-11] MEDS: CHOLECALCIFEROL (VITAMIN D3) 1,000 UNIT TABLET PO SCH ×2 (08:32→09:00)
[2016-08-11 08:33] LABS: FIO2 ABG 28
--- NOTE | 2016-08-11 08:48 | PDOC ---
SURGICAL PROGRESS NOTE Subjective Doing well, much less pain. Breathing better. Wants something to drink Vital Signs Vital Signs Date Time Temp Pulse Resp B/P (MAP) Pulse Ox O2 Delivery O2 Flow Rate FiO2 08/11/16 07:25 Bi-pap 3.0 08/11/16 07:07 90 08/11/16 07:00 98.4 78 18 121/65 (83) 98.4 I&O Intake and Output 08/11/16 07:00 Intake Total 3050 ml Output Total 330 ml Balance 2720 ml Intake IV Total 3050 ml Output Urine Total 250 ml Drainage Total 50 ml Estimated Blood Loss 30 ml # Voids 1 PATIENT HAS A CHU: No General: Alert, Oriented X3, Cooperative, mild distress Abdomen: Normal bowel sounds, Soft, Other (wound c/d/i mild incisional tenderness) Labs Laboratory Tests Test 08/10/16 17:10 08/10/16 17:12 08/10/16 17:45 08/10/16 23:30 White Blood Count 12.2 x10^3/uL (4.0-11.0) Red Blood Count 5.32 x10^6/uL (3.50-5.40) Hemoglobin 16.2 g/dL (12.0-15.5) Hematocrit 48.1 % (36.0-47.0) Mean Corpuscular Volume 90 fL (79-100) Mean Corpuscular Hemoglobin 31 pg (25-35) Mean Corpuscular Hemoglobin Concent 34 g/dL (31-37) Red Cell Distribution Width 14.5 % (11.5-14.5) Platelet Count 329 x10^3/uL (140-400) Neutrophils (%) (Auto) 61 % (31-73) Lymphocytes (%) (Auto) 30 % (24-48) Monocytes (%) (Auto) 7 % (0-9) Eosinophils (%) (Auto) 1 % (0-3) Basophils (%) (Auto) 1 % (0-3) Neutrophils # (Auto) 7.5 x10^3uL (1.8-7.7) Lymphocytes # (Auto) 3.6 x10^3/uL (1.0-4.8) Monocytes # (Auto) 0.9 x10^3/uL (0.0-1.1) Eosinophils # (Auto) 0.2 x10^3/uL (0.0-0.7) Basophils # (Auto) 0.1 x10^3/uL (0.0-0.2) Lactic Acid Level 2.8 mmol/L (0.4-2.0) Sodium Level 139 mmol/L (136-145) Potassium Level 3.9 mmol/L (3.5-5.1) Chloride Level 102 mmol/L (98-107) Carbon Dioxide Level 31 mmol/L (21-32) Anion Gap 6 (6-14) Blood Urea Nitrogen 14 mg/dL (7-20) Creatinine 1.2 mg/dL (0.6-1.0) Estimated GFR (Cockcroft-Gault) 46.1 BUN/Creatinine Ratio 12 (6-20) Glucose Level 160 mg/dL (70-99) Calcium Level 8.8 mg/dL (8.5-10.1) Total Bilirubin 0.5 mg/dL (0.2-1.0) Aspartate Amino Transf (AST/SGOT) 33 U/L (15-37) Alanine Aminotransferase (ALT/SGPT) 41 U/L (14-59) Alkaline Phosphatase 95 U/L (46-116) Total Protein 7.6 g/dL (6.4-8.2) Albumin 3.2 g/dL (3.4-5.0) Albumin/Globulin Ratio 0.7 (1.0-1.7) Lipase 65 U/L (73-393) O2 Saturation 99 % (92-99) Arterial Blood pH 7.29 (7.35-7.45) Arterial Blood pCO2 at Patient Temp 52 mmHg (35-46) Arterial Blood pO2 at Patient Temp 235 mmHg (75-108) Arterial Blood HCO3 24 mmol/L (21-28) Arterial Blood Base Excess -3 mmol/L (-3-3) FiO2 100 Test 08/11/16 05:23 08/11/16 08:00 White Blood Count 11.8 x10^3/uL (4.0-11.0) Red Blood Count 4.84 x10^6/uL (3.50-5.40) Hemoglobin 14.6 g/dL (12.0-15.5) Hematocrit 43.6 % (36.0-47.0) Mean Corpuscular Volume 90 fL (79-100) Mean Corpuscular Hemoglobin 30 pg (25-35) Mean Corpuscular Hemoglobin Concent 34 g/dL (31-37) Red Cell Distribution Width 14.8 % (11.5-14.5) Platelet Count 307 x10^3/uL (140-400) Neutrophils (%) (Auto) 85 % (31-73) Lymphocytes (%) (Auto) 10 % (24-48) Monocytes (%) (Auto) 4 % (0-9) Eosinophils (%) (Auto) 0 % (0-3) Basophils (%) (Auto) 0 % (0-3) Neutrophils # (Auto) 10.0 x10^3uL (1.8-7.7) Lymphocytes # (Auto) 1.2 x10^3/uL (1.0-4.8) Monocytes # (Auto) 0.5 x10^3/uL (0.0-1.1) Eosinophils # (Auto) 0.0 x10^3/uL (0.0-0.7) Basophils # (Auto) 0.0 x10^3/uL (0.0-0.2) Segmented Neutrophils % 88 % (35-66) Band Neutrophils % 3 % (0-9) Lymphocytes % 6 % (24-48) Monocytes % 3 % (0-10) Platelet Estimate Adequate (ADEQUATE) Sodium Level 140 mmol/L (136-145) Potassium Level 4.4 mmol/L (3.5-5.1) Chloride Level 105 mmol/L (98-107) Carbon Dioxide Level 28 mmol/L (21-32) Anion Gap 7 (6-14) Blood Urea Nitrogen 13 mg/dL (7-20) Creatinine 1.2 mg/dL (0.6-1.0) Estimated GFR (Cockcroft-Gault) 46.1 Glucose Level 146 mg/dL (70-99) Calcium Level 8.4 mg/dL (8.5-10.1) O2 Saturation 92 % (92-99) Arterial Blood pH 7.41 (7.35-7.45) Arterial Blood pCO2 at Patient Temp 38 mmHg (35-46) Arterial Blood pO2 at Patient Temp 61 mmHg (75-108) Arterial Blood HCO3 24 mmol/L (21-28) Arterial Blood Base Excess 0 mmol/L (-3-3) FiO2 28 Laboratory Tests Test 08/10/16 17:10 08/10/16 17:12 08/10/16 17:45 08/10/16 23:30 White Blood Count 12.2 x10^3/uL (4.0-11.0) Red Blood Count 5.32 x10^6/uL (3.50-5.40) Hemoglobin 16.2 g/dL (12.0-15.5) Hematocrit 48.1 % (36.0-47.0) Mean Corpuscular Volume 90 fL (79-100) Mean Corpuscular Hemoglobin 31 pg (25-35) Mean Corpuscular Hemoglobin Concent 34 g/dL (31-37) Red Cell Distribution Width 14.5 % (11.5-14.5) Platelet Count 329 x10^3/uL (140-400) Neutrophils (%) (Auto) 61 % (31-73) Lymphocytes (%) (Auto) 30 % (24-48) Monocytes (%) (Auto) 7 % (0-9) Eosinophils (%) (Auto) 1 % (0-3) Basophils (%) (Auto) 1 % (0-3) Neutrophils # (Auto) 7.5 x10^3uL (1.8-7.7) Lymphocytes # (Auto) 3.6 x10^3/uL (1.0-4.8) Monocytes # (Auto) 0.9 x10^3/uL (0.0-1.1) Eosinophils # (Auto) 0.2 x10^3/uL (0.0-0.7) Basophils # (Auto) 0.1 x10^3/uL (0.0-0.2) Lactic Acid Level 2.8 mmol/L (0.4-2.0) Sodium Level 139 mmol/L (136-145) Potassium Level 3.9 mmol/L (3.5-5.1) Chloride Level 102 mmol/L (98-107) Carbon Dioxide Level 31 mmol/L (21-32) Anion Gap 6 (6-14) Blood Urea Nitrogen 14 mg/dL (7-20) Creatinine 1.2 mg/dL (0.6-1.0) Estimated GFR (Cockcroft-Gault) 46.1 BUN/Creatinine Ratio 12 (6-20) Glucose Level 160 mg/dL (70-99) Calcium Level 8.8 mg/dL (8.5-10.1) Total Bilirubin 0.5 mg/dL (0.2-1.0) Aspartate Amino Transf (AST/SGOT) 33 U/L (15-37) Alanine Aminotransferase (ALT/SGPT) 41 U/L (14-59) Alkaline Phosphatase 95 U/L (46-116) Total Protein 7.6 g/dL (6.4-8.2) Albumin 3.2 g/dL (3.4-5.0) Albumin/Globulin Ratio 0.7 (1.0-1.7) Lipase 65 U/L (73-393) O2 Saturation 99 % (92-99) Arterial Blood pH 7.29 (7.35-7.45) Arterial Blood pCO2 at Patient Temp 52 mmHg (35-46) Arterial Blood pO2 at Patient Temp 235 mmHg (75-108) Arterial Blood HCO3 24 mmol/L (21-28) Arterial Blood Base Excess -3 mmol/L (-3-3) FiO2 100 Test 08/11/16 05:23 08/11/16 08:00 White Blood Count 11.8 x10^3/uL (4.0-11.0) Red Blood Count 4.84 x10^6/uL (3.50-5.40) Hemoglobin 14.6 g/dL (12.0-15.5) Hematocrit 43.6 % (36.0-47.0) Mean Corpuscular Volume 90 fL (79-100) Mean Corpuscular Hemoglobin 30 pg (25-35) Mean Corpuscular Hemoglobin Concent 34 g/dL (31-37) Red Cell Distribution Width 14.8 % (11.5-14.5) Platelet Count 307 x10^3/uL (140-400) Neutrophils (%) (Auto) 85 % (31-73) Lymphocytes (%) (Auto) 10 % (24-48) Monocytes (%) (Auto) 4 % (0-9) Eosinophils (%) (Auto) 0 % (0-3) Basophils (%) (Auto) 0 % (0-3) Neutrophils # (Auto) 10.0 x10^3uL (1.8-7.7) Lymphocytes # (Auto) 1.2 x10^3/uL (1.0-4.8) Monocytes # (Auto) 0.5 x10^3/uL (0.0-1.1) Eosinophils # (Auto) 0.0 x10^3/uL (0.0-0.7) Basophils # (Auto) 0.0 x10^3/uL (0.0-0.2) Segmented Neutrophils % 88 % (35-66) Band Neutrophils % 3 % (0-9) Lymphocytes % 6 % (24-48) Monocytes % 3 % (0-10) Platelet Estimate Adequate (ADEQUATE) Sodium Level 140 mmol/L (136-145) Potassium Level 4.4 mmol/L (3.5-5.1) Chloride Level 105 mmol/L (98-107) Carbon Dioxide Level 28 mmol/L (21-32) Anion Gap 7 (6-14) Blood Urea Nitrogen 13 mg/dL (7-20) Creatinine 1.2 mg/dL (0.6-1.0) Estimated GFR (Cockcroft-Gault) 46.1 Glucose Level 146 mg/dL (70-99) Calcium Level 8.4 mg/dL (8.5-10.1) O2 Saturation 92 % (92-99) Arterial Blood pH 7.41 (7.35-7.45) Arterial Blood pCO2 at Patient Temp 38 mmHg (35-46) Arterial Blood pO2 at Patient Temp 61 mmHg (75-108) Arterial Blood HCO3 24 mmol/L (21-28) Arterial Blood Base Excess 0 mmol/L (-3-3) FiO2 28 Problem List Problems Medical Problems: (1) COPD exacerbation Status: Acute (2) Incarcerated hernia Status: Acute (3) SBO (small bowel obstruction) Status: Acute Assessment/Plan s/p repair of strangulated ventral hernia Doing well adv diet. Problems: COLTEN ASH MD August 11, 2016 08:48
[2016-08-11] MEDS: FLUTICASONE 50MCG/NASAL SPRAY 16GM BOTTLE. NS SCH (09:00)
[2016-08-11] MEDS ORDERED: methylPREDNISolone SOD SUCC PF 125 MG/2 ML VIAL. IV ONE (10:30)
--- NOTE | 2016-08-11 11:09 | PDOC ---
Provider Note Provider Note [id number] acute resp fail abnl cxr copd w ae s/p exp lap ? farrukh see orders PIEDAD HOYT MD August 11, 2016 11:09
--- NOTE | 2016-08-11 11:55 | CONS ---
DATE OF CONSULTATION: 08/11/2016 I was asked to see this 56-year-old lady for shortness of breath, acute exacerbation of COPD, cough. HISTORY OF PRESENT ILLNESS: She does have history of [id number] smoking, continues to smoke about 1 pack per day. She was discharged from [facility] on 08/09/2016 and came back on 08/10/2016 with increased abdominal pain with nausea and vomiting. She underwent exploratory laboratory last night with reduction of hernia and repair with mesh with diagnosis of strangulated ventral hernia and small bowel obstruction. She does have shortness of breath. She has occasional cough with no sputum production. She has pain in incision area. She has nasal congestion. PAST MEDICAL HISTORY: Suspected COPD with ongoing tobacco use, suspected obstructive sleep apnea-hypopnea syndrome, hypertension, osteoarthritis, allergic rhinitis, ventral hernia. FAMILY HISTORY: There is no history of lung disease. ALLERGIES: No known drug allergies. MEDICATIONS: Currently she is on DuoNeb, cefazolin, IV fluids, Pulmicort b.i.d. Singulair, fentanyl, Flonase, Zofran p.r.n. SOCIAL HISTORY: History of 33-ooxg-uyse smoking, continues to smoke 1 pack per day. REVIEW OF SYSTEMS: As mentioned as above. She snores and has excessive daytime sleepiness. Other systems are otherwise negative. PHYSICAL EXAMINATION: GENERAL: An obese lady. VITAL SIGNS: Her O2 saturation is 90% on 2 liters of oxygen, heart rate 78, blood pressure 121/65, temperature 98.4, respiratory rate 18. HEENT: Normocephalic, atraumatic. Pupils equal, round, reactive to light. Throat is clear. There is shallow oropharynx. Nose is clear. NECK: There is no JVD, lymphadenopathy or thyromegaly. CARDIOVASCULAR: Regular rate and rhythm. PMI is nondisplaced. CHEST: Inspection is normal. LUNGS: Clear to auscultation. There is no wheezing. ABDOMEN: Status post surgery. Diminished bowel sounds. EXTREMITIES: There is edema. LYMPHATICS: There is no lymphadenopathy. SKIN: Chronic changes. NEUROLOGIC: Alert and oriented x 3. LABORATORY DATA: I reviewed the following lab data: Her chest x-ray shows bibasilar atelectasis. WBC 11.8, hemoglobin 14.6, platelets 307. Sodium 140, potassium 4.4, chloride 105, CO2 of 28, glucose 146, BUN 13, creatinine 1.2. Her ABG this morning, pH 7.41, pCO2 of 38, pO2 of 61 and 28% FIO2. IMPRESSION: 1. Acute respiratory failure, multifactorial in etiology. 2. Chronic obstructive pulmonary disease with acute exacerbation. 3. Abnormal chest x-ray. 4. Atelectasis. 5. Status post exploratory laparotomy with strangulated hernia and small bowel obstruction. 6. Obesity, snoring and excessive daytime sleepiness, probable obstructive sleep apnea-hypopnea syndrome. 7. Tobacco habituation. PLAN AND RECOMMENDATION: 1. I had a long discussion with her regarding smoking cessation. I have advised her to stop smoking forever. 2. Bronchodilator. 3. Inhaled corticosteroid. 4. Start incentive spirometer at least multiple times an hour. 5. Titrate FiO2 to keep O2 saturation 90%. 6. Monitor respiratory status very closely. 7. She would require a sleep study as an outpatient. 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 8. PFTs as an outpatient. 9. SCDs for DVT prophylaxis. 10. Start Lovenox when ok with surgery. 11. Protonix for stress ulcer prophylaxis. 12. The findings and recommendations were discussed with the patient. She understood and agreed to proceed with the plan. I have answered all of her questions. Thank you very much for allowing me to participate in the care of this very nice lady. PIEDAD HOYT M.D. : LIZANDRO/sree JOB#: [id number] / [id number] SHANNAN
[2016-08-11] MEDS: oxyCODONE/APAP 5/325 1 TAB TABLET PO PRN ×2 (15:23→21:08)
[2016-08-11] MEDS: MONTELUKAST SODIUM 10 MG TABLET. PO SCH (21:08)
[2016-08-11] MEDS: CETIRIZINE HCL 10 MG TABLET. PO SCH (21:08)
[2016-08-12] MEDS: KETOROLAC 15 MG/ML VIAL. IV SCH ×4 (01:01→17:35)
[2016-08-12] MEDS: BENZOCAINE/MENTHOL LOZENGE. PO PRN ×2 (01:13→15:22)
[2016-08-12 03:00] VITALS: BP 146/83
[2016-08-12 05:18] LABS: BASO % 0 % (0-3); EOS % 0 % (0-3); HEMATOCRIT 44.3 % (36.0-47.0); HEMOGLOBIN 14.8 g/dL (12.0-15.5); LYMPH # 2.4 x10^3/uL (1.0-4.8); LYMPH % 20 % (24-48); MEAN CORPUSCULAR HEMOGLOBIN 30 pg (25-35); MEAN CORPUSCULAR HGB CONC 33 g/dL (31-37); MEAN CORPUSCULAR VOLUME 90 fL (79-100); MONO % 9 % (0-9); NEUT % 72 % (31-73); PLATELET COUNT 310 x10^3/uL (140-400); RED BLOOD COUNT 4.93 x10^6/uL (3.50-5.40); RED CELL DISTRIBUTION WIDTH 14.4 % (11.5-14.5); WHITE BLOOD COUNT 12.1 x10^3/uL (4.0-11.0)
[2016-08-12] MEDS: IV DEXTROSE 5%-LACT RINGERS 1,000 ML IV SCH ×2 (05:41→23:55)
[2016-08-12 05:54] LABS: CALCIUM 8.8 mg/dL (8.5-10.1); CREATININE 1.1 mg/dL (0.6-1.0); POTASSIUM 4.2 mmol/L (3.5-5.1)
[2016-08-12 07:00] VITALS: BP 128/77
[2016-08-12] MEDS: IPRATRPIUM/ALBUTEROL 0.5/2.5MG 3 ML NEBU. NEB SCH ×4 (07:18→19:52)
[2016-08-12] MEDS: BUDESONIDE 0.5 MG/2 ML NEBU. NEB SCH ×2 (07:18→19:52)
[2016-08-12] MEDS: PANTOPRAZOLE 40 MG TABLET.DR. PO SCH (07:50)
[2016-08-12] MEDS: CHOLECALCIFEROL (VITAMIN D3) 1,000 UNIT TABLET PO SCH (08:52)
[2016-08-12] MEDS: FLUTICASONE 50MCG/NASAL SPRAY 16GM BOTTLE. NS SCH (08:54)
--- NOTE | 2016-08-12 09:29 | PDOC ---
PULMONARY PROGRESS NOTES Subjective tired on 02, no pain, sob better. has runny nose. occ cough Vitals Vital Signs Date Time Temp Pulse Resp B/P (MAP) Pulse Ox O2 Delivery O2 Flow Rate FiO2 08/12/16 07:20 92 Nasal Cannula 2.0 08/12/16 07:00 98.4 78 20 128/77 (94) 98.4 General: Alert, No acute distress HEENT: Other (nc at perrl shallow oropharynx) Lungs: Crackles Cardiovascular: S1, S2 Abdomen: Soft, Non-tender Neuro Exam: Alert Extremities: Other (edema) Skin: Warm Labs Laboratory Tests Test 08/10/16 17:10 08/10/16 17:12 08/10/16 17:45 08/10/16 23:30 White Blood Count 12.2 x10^3/uL (4.0-11.0) Red Blood Count 5.32 x10^6/uL (3.50-5.40) Hemoglobin 16.2 g/dL (12.0-15.5) Hematocrit 48.1 % (36.0-47.0) Mean Corpuscular Volume 90 fL (79-100) Mean Corpuscular Hemoglobin 31 pg (25-35) Mean Corpuscular Hemoglobin Concent 34 g/dL (31-37) Red Cell Distribution Width 14.5 % (11.5-14.5) Platelet Count 329 x10^3/uL (140-400) Neutrophils (%) (Auto) 61 % (31-73) Lymphocytes (%) (Auto) 30 % (24-48) Monocytes (%) (Auto) 7 % (0-9) Eosinophils (%) (Auto) 1 % (0-3) Basophils (%) (Auto) 1 % (0-3) Neutrophils # (Auto) 7.5 x10^3uL (1.8-7.7) Lymphocytes # (Auto) 3.6 x10^3/uL (1.0-4.8) Monocytes # (Auto) 0.9 x10^3/uL (0.0-1.1) Eosinophils # (Auto) 0.2 x10^3/uL (0.0-0.7) Basophils # (Auto) 0.1 x10^3/uL (0.0-0.2) Lactic Acid Level 2.8 mmol/L (0.4-2.0) Sodium Level 139 mmol/L (136-145) Potassium Level 3.9 mmol/L (3.5-5.1) Chloride Level 102 mmol/L (98-107) Carbon Dioxide Level 31 mmol/L (21-32) Anion Gap 6 (6-14) Blood Urea Nitrogen 14 mg/dL (7-20) Creatinine 1.2 mg/dL (0.6-1.0) Estimated GFR (Cockcroft-Gault) 46.1 BUN/Creatinine Ratio 12 (6-20) Glucose Level 160 mg/dL (70-99) Calcium Level 8.8 mg/dL (8.5-10.1) Total Bilirubin 0.5 mg/dL (0.2-1.0) Aspartate Amino Transf (AST/SGOT) 33 U/L (15-37) Alanine Aminotransferase (ALT/SGPT) 41 U/L (14-59) Alkaline Phosphatase 95 U/L (46-116) Total Protein 7.6 g/dL (6.4-8.2) Albumin 3.2 g/dL (3.4-5.0) Albumin/Globulin Ratio 0.7 (1.0-1.7) Lipase 65 U/L (73-393) O2 Saturation 99 % (92-99) Arterial Blood pH 7.29 (7.35-7.45) Arterial Blood pCO2 at Patient Temp 52 mmHg (35-46) Arterial Blood pO2 at Patient Temp 235 mmHg (75-108) Arterial Blood HCO3 24 mmol/L (21-28) Arterial Blood Base Excess -3 mmol/L (-3-3) FiO2 100 Test 08/11/16 05:23 08/11/16 08:00 08/12/16 04:50 White Blood Count 11.8 x10^3/uL (4.0-11.0) 12.1 x10^3/uL (4.0-11.0) Red Blood Count 4.84 x10^6/uL (3.50-5.40) 4.93 x10^6/uL (3.50-5.40) Hemoglobin 14.6 g/dL (12.0-15.5) 14.8 g/dL (12.0-15.5) Hematocrit 43.6 % (36.0-47.0) 44.3 % (36.0-47.0) Mean Corpuscular Volume 90 fL (79-100) 90 fL (79-100) Mean Corpuscular Hemoglobin 30 pg (25-35) 30 pg (25-35) Mean Corpuscular Hemoglobin Concent 34 g/dL (31-37) 33 g/dL (31-37) Red Cell Distribution Width 14.8 % (11.5-14.5) 14.4 % (11.5-14.5) Platelet Count 307 x10^3/uL (140-400) 310 x10^3/uL (140-400) Neutrophils (%) (Auto) 85 % (31-73) 72 % (31-73) Lymphocytes (%) (Auto) 10 % (24-48) 20 % (24-48) Monocytes (%) (Auto) 4 % (0-9) 9 % (0-9) Eosinophils (%) (Auto) 0 % (0-3) 0 % (0-3) Basophils (%) (Auto) 0 % (0-3) 0 % (0-3) Neutrophils # (Auto) 10.0 x10^3uL (1.8-7.7) 8.7 x10^3uL (1.8-7.7) Lymphocytes # (Auto) 1.2 x10^3/uL (1.0-4.8) 2.4 x10^3/uL (1.0-4.8) Monocytes # (Auto) 0.5 x10^3/uL (0.0-1.1) 1.0 x10^3/uL (0.0-1.1) Eosinophils # (Auto) 0.0 x10^3/uL (0.0-0.7) 0.0 x10^3/uL (0.0-0.7) Basophils # (Auto) 0.0 x10^3/uL (0.0-0.2) 0.0 x10^3/uL (0.0-0.2) Segmented Neutrophils % 88 % (35-66) Band Neutrophils % 3 % (0-9) Lymphocytes % 6 % (24-48) Monocytes % 3 % (0-10) Platelet Estimate Adequate (ADEQUATE) Sodium Level 140 mmol/L (136-145) 140 mmol/L (136-145) Potassium Level 4.4 mmol/L (3.5-5.1) 4.2 mmol/L (3.5-5.1) Chloride Level 105 mmol/L (98-107) 103 mmol/L (98-107) Carbon Dioxide Level 28 mmol/L (21-32) 31 mmol/L (21-32) Anion Gap 7 (6-14) 6 (6-14) Blood Urea Nitrogen 13 mg/dL (7-20) 14 mg/dL (7-20) Creatinine 1.2 mg/dL (0.6-1.0) 1.1 mg/dL (0.6-1.0) Estimated GFR (Cockcroft-Gault) 46.1 51.0 Glucose Level 146 mg/dL (70-99) 123 mg/dL (70-99) Calcium Level 8.4 mg/dL (8.5-10.1) 8.8 mg/dL (8.5-10.1) O2 Saturation 92 % (92-99) Arterial Blood pH 7.41 (7.35-7.45) Arterial Blood pCO2 at Patient Temp 38 mmHg (35-46) Arterial Blood pO2 at Patient Temp 61 mmHg (75-108) Arterial Blood HCO3 24 mmol/L (21-28) Arterial Blood Base Excess 0 mmol/L (-3-3) FiO2 28 Laboratory Tests Test 08/12/16 04:50 White Blood Count 12.1 x10^3/uL (4.0-11.0) Red Blood Count 4.93 x10^6/uL (3.50-5.40) Hemoglobin 14.8 g/dL (12.0-15.5) Hematocrit 44.3 % (36.0-47.0) Mean Corpuscular Volume 90 fL (79-100) Mean Corpuscular Hemoglobin 30 pg (25-35) Mean Corpuscular Hemoglobin Concent 33 g/dL (31-37) Red Cell Distribution Width 14.4 % (11.5-14.5) Platelet Count 310 x10^3/uL (140-400) Neutrophils (%) (Auto) 72 % (31-73) Lymphocytes (%) (Auto) 20 % (24-48) Monocytes (%) (Auto) 9 % (0-9) Eosinophils (%) (Auto) 0 % (0-3) Basophils (%) (Auto) 0 % (0-3) Neutrophils # (Auto) 8.7 x10^3uL (1.8-7.7) Lymphocytes # (Auto) 2.4 x10^3/uL (1.0-4.8) Monocytes # (Auto) 1.0 x10^3/uL (0.0-1.1) Eosinophils # (Auto) 0.0 x10^3/uL (0.0-0.7) Basophils # (Auto) 0.0 x10^3/uL (0.0-0.2) Sodium Level 140 mmol/L (136-145) Potassium Level 4.2 mmol/L (3.5-5.1) Chloride Level 103 mmol/L (98-107) Carbon Dioxide Level 31 mmol/L (21-32) Anion Gap 6 (6-14) Blood Urea Nitrogen 14 mg/dL (7-20) Creatinine 1.1 mg/dL (0.6-1.0) Estimated GFR (Cockcroft-Gault) 51.0 Glucose Level 123 mg/dL (70-99) Calcium Level 8.8 mg/dL (8.5-10.1) Medications Active Scripts Medications Dose Route/Sig Max Daily Dose Days Date Category Tessalon Perle (Benzonatate) 100 Mg Capsule 1 Cap PO PRN TID 08/09/16 Rx Proair Hfa Inhaler (Albuterol Sulfate) 8.5 Gm Hfa.aer.ad 2 Puff INH PRN QID PRN 08/09/16 Rx Symbicort 160-4.5 Mcg Inhaler (Budesonide/Formoterol Fumarate) 10.2 Gm Hfa.aer.ad 2 Puff IH BID 08/09/16 Rx Levaquin (Levofloxacin) 500 Mg Tablet 500 Mg PO DAILY 08/09/16 Rx Pantoprazole Sodium 40 Mg Tablet.dr 40 Mg PO DAILYAC 08/09/16 Rx Montelukast Sodium Tablet (Montelukast Sodium) 10 Mg Tablet 10 Mg PO QHS 08/09/16 Rx Fluticasone Propionate Nasal Cataldo (Fluticasone Propionate) 16 Gm Cataldo.susp 2 Cataldo NS DAILY 08/09/16 Rx Vitamin D (Cholecalciferol (Vitamin D3)) 1,000 Unit Tablet 2,000 Unit PO DAILY 08/09/16 Rx Cetirizine Hcl 10 Mg Tablet 10 Mg PO HS 08/09/16 Rx Impression . IMPRESSION: 1. Acute respiratory failure, multifactorial in etiology. 2. Chronic obstructive pulmonary disease with acute exacerbation. 3. Abnormal chest x-ray. 4. Atelectasis. 5. Status post exploratory laparotomy with strangulated hernia and small bowel obstruction. 6. Obesity, snoring and excessive daytime sleepiness, probable obstructive sleep apnea-hypopnea syndrome. 7. Tobacco habituation. Plan . PLAN AND RECOMMENDATION: 1. I had a long discussion with her regarding smoking cessation. I have advised her to stop smoking forever. 2. Bronchodilator. 3. Inhaled corticosteroid. 4. incentive spirometer at least multiple times an hour. 5. Titrate FiO2 to keep O2 saturation 90%. 6. Monitor respiratory status very closely. 7. She would require a sleep study as an outpatient. 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 8. PFTs as an outpatient. 9. SCDs for DVT prophylaxis. 10. Start Lovenox when ok with surgery. 11. Protonix for stress ulcer prophylaxis. 12. The findings and recommendations were discussed with the patient. She understood and agreed to proceed with the plan. I have answered all of her questions. PIEDAD HOYT MD August 12, 2016 09:29
--- NOTE | 2016-08-12 10:01 | PDOC3 ---
LACY-DUANEEMILIE REVENUE SETTLEMENTS ADMINISTRATOR 08/12/16 1001: IM DISCHARGE & PROGRESS NOTES Date of Admission Date of Admission Date of Admission: August 10, 2016 at 19:03 Date of Discharge Date of Discharge 08/12/16 Primary Diagnosis Primary Diagnosis IMPRESSION: 1. abdominal pain r/t incarcerated periumbilical hernia, PSBO s/p exp lap, hernia rpr with mesh 08/10/16 2. acute bronchitis 3. acute hypercapnic respiratory failure post op with suspected OHS/OCTAVIA 4. CKD II 5. suspected COPD with h/o smoking since 16yo with exacerbation 6. HTN 7. fatty liver 8. cholelithiasis asymptomatic 9. chronic L knee pain OA 10. morbid obesity with BMI 50-59 11. allergic rhinitis Consults Consults Michoacano Arreguin MD Procedures Procedures BRIEF OPERATIVE NOTE Date: August 10, 2016 Pre-Op Diagnosis Strangulated ventral hernia Post-Op Diagnosis Same Procedure Performed exploratory laparotomy with reduction of hernia and repair with mesh Surgeon Jonathan Anesthesia Type: General Blood Loss 30ml Specimens Obtained hernia sack Findings as above Complications None COLTEN CASTILLO MD August 10, 2016 22:00 Signed By: COLTEN CASTILLO MD <<Signature on File>> Signed Date/Time: 08/10/16 2200 Labs Labs Laboratory Tests Test 08/10/16 17:10 08/10/16 17:12 08/10/16 17:45 08/10/16 23:30 White Blood Count 12.2 x10^3/uL (4.0-11.0) Red Blood Count 5.32 x10^6/uL (3.50-5.40) Hemoglobin 16.2 g/dL (12.0-15.5) Hematocrit 48.1 % (36.0-47.0) Mean Corpuscular Volume 90 fL (79-100) Mean Corpuscular Hemoglobin 31 pg (25-35) Mean Corpuscular Hemoglobin Concent 34 g/dL (31-37) Red Cell Distribution Width 14.5 % (11.5-14.5) Platelet Count 329 x10^3/uL (140-400) Neutrophils (%) (Auto) 61 % (31-73) Lymphocytes (%) (Auto) 30 % (24-48) Monocytes (%) (Auto) 7 % (0-9) Eosinophils (%) (Auto) 1 % (0-3) Basophils (%) (Auto) 1 % (0-3) Neutrophils # (Auto) 7.5 x10^3uL (1.8-7.7) Lymphocytes # (Auto) 3.6 x10^3/uL (1.0-4.8) Monocytes # (Auto) 0.9 x10^3/uL (0.0-1.1) Eosinophils # (Auto) 0.2 x10^3/uL (0.0-0.7) Basophils # (Auto) 0.1 x10^3/uL (0.0-0.2) Lactic Acid Level 2.8 mmol/L (0.4-2.0) Sodium Level 139 mmol/L (136-145) Potassium Level 3.9 mmol/L (3.5-5.1) Chloride Level 102 mmol/L (98-107) Carbon Dioxide Level 31 mmol/L (21-32) Anion Gap 6 (6-14) Blood Urea Nitrogen 14 mg/dL (7-20) Creatinine 1.2 mg/dL (0.6-1.0) Estimated GFR (Cockcroft-Gault) 46.1 BUN/Creatinine Ratio 12 (6-20) Glucose Level 160 mg/dL (70-99) Calcium Level 8.8 mg/dL (8.5-10.1) Total Bilirubin 0.5 mg/dL (0.2-1.0) Aspartate Amino Transf (AST/SGOT) 33 U/L (15-37) Alanine Aminotransferase (ALT/SGPT) 41 U/L (14-59) Alkaline Phosphatase 95 U/L (46-116) Total Protein 7.6 g/dL (6.4-8.2) Albumin 3.2 g/dL (3.4-5.0) Albumin/Globulin Ratio 0.7 (1.0-1.7) Lipase 65 U/L (73-393) O2 Saturation 99 % (92-99) Arterial Blood pH 7.29 (7.35-7.45) Arterial Blood pCO2 at Patient Temp 52 mmHg (35-46) Arterial Blood pO2 at Patient Temp 235 mmHg (75-108) Arterial Blood HCO3 24 mmol/L (21-28) Arterial Blood Base Excess -3 mmol/L (-3-3) FiO2 100 Test 08/11/16 05:23 5/12/17 08:00 08/12/16 04:50 White Blood Count 11.8 x10^3/uL (4.0-11.0) 12.1 x10^3/uL (4.0-11.0) Red Blood Count 4.84 x10^6/uL (3.50-5.40) 4.93 x10^6/uL (3.50-5.40) Hemoglobin 14.6 g/dL (12.0-15.5) 14.8 g/dL (12.0-15.5) Hematocrit 43.6 % (36.0-47.0) 44.3 % (36.0-47.0) Mean Corpuscular Volume 90 fL (79-100) 90 fL (79-100) Mean Corpuscular Hemoglobin 30 pg (25-35) 30 pg (25-35) Mean Corpuscular Hemoglobin Concent 34 g/dL (31-37) 33 g/dL (31-37) Red Cell Distribution Width 14.8 % (11.5-14.5) 14.4 % (11.5-14.5) Platelet Count 307 x10^3/uL (140-400) 310 x10^3/uL (140-400) Neutrophils (%) (Auto) 85 % (31-73) 72 % (31-73) Lymphocytes (%) (Auto) 10 % (24-48) 20 % (24-48) Monocytes (%) (Auto) 4 % (0-9) 9 % (0-9) Eosinophils (%) (Auto) 0 % (0-3) 0 % (0-3) Basophils (%) (Auto) 0 % (0-3) 0 % (0-3) Neutrophils # (Auto) 10.0 x10^3uL (1.8-7.7) 8.7 x10^3uL (1.8-7.7) Lymphocytes # (Auto) 1.2 x10^3/uL (1.0-4.8) 2.4 x10^3/uL (1.0-4.8) Monocytes # (Auto) 0.5 x10^3/uL (0.0-1.1) 1.0 x10^3/uL (0.0-1.1) Eosinophils # (Auto) 0.0 x10^3/uL (0.0-0.7) 0.0 x10^3/uL (0.0-0.7) Basophils # (Auto) 0.0 x10^3/uL (0.0-0.2) 0.0 x10^3/uL (0.0-0.2) Segmented Neutrophils % 88 % (35-66) Band Neutrophils % 3 % (0-9) Lymphocytes % 6 % (24-48) Monocytes % 3 % (0-10) Platelet Estimate Adequate (ADEQUATE) Sodium Level 140 mmol/L (136-145) 140 mmol/L (136-145) Potassium Level 4.4 mmol/L (3.5-5.1) 4.2 mmol/L (3.5-5.1) Chloride Level 105 mmol/L (98-107) 103 mmol/L (98-107) Carbon Dioxide Level 28 mmol/L (21-32) 31 mmol/L (21-32) Anion Gap 7 (6-14) 6 (6-14) Blood Urea Nitrogen 13 mg/dL (7-20) 14 mg/dL (7-20) Creatinine 1.2 mg/dL (0.6-1.0) 1.1 mg/dL (0.6-1.0) Estimated GFR (Cockcroft-Gault) 46.1 51.0 Glucose Level 146 mg/dL (70-99) 123 mg/dL (70-99) Calcium Level 8.4 mg/dL (8.5-10.1) 8.8 mg/dL (8.5-10.1) O2 Saturation 92 % (92-99) Arterial Blood pH 7.41 (7.35-7.45) Arterial Blood pCO2 at Patient Temp 38 mmHg (35-46) Arterial Blood pO2 at Patient Temp 61 mmHg (75-108) Arterial Blood HCO3 24 mmol/L (21-28) Arterial Blood Base Excess 0 mmol/L (-3-3) FiO2 28 Medications Medications Medications reviewed and reconciled for discharge. Brief hospital course Brief hospital course This 56 year old female who presented with incarcerated hernia. She was admitted. The following is a summary of her treatment: abdominal pain Lactic acid 2.8 s/p hernia repair per Dr. Castillo 08/10 WBC admit 12.2 08/01 11.8 Solumedrol 100mg IV 08/09 prior to last DC Decadron in surgery Pain control: Toradol scheduled dose post op, has had no narcotics. acute hypercapnic respiratory failure/AB;AE suspected COPD duoneb with budesonide in place Symbicort BIPAP post op for hypercapnia O2 3L this morning, ABGs pending 08/11 stop O2 and check RA sat. staff advised DVT/GI prophylaxis SCD/Amber PPI For more details regarding the past history, family history, social history, surgical history and other details, please refer to History and Physical. Plan to DC home. Will need sleep study, PFTs out patient. Smoking cessation. Please see discharge orders. Subjective cough persist Objective no distress Vitals Vital Signs Date Time Temp Pulse Resp B/P (MAP) Pulse Ox O2 Delivery O2 Flow Rate FiO2 08/12/16 07:20 92 Nasal Cannula 2.0 08/12/16 07:00 98.4 78 20 128/77 (94) 98.4 Physical Exam General appearance - alert,well appearing, and in no distress Mental Status - alert, oriented to person, place, and time, affect appropriate to mood Head - normal Chest - wheezing mod coarse. Heart - S1 and S2 normal Abdomen - soft, + tender, nondistended, BS +, dressing intact Neurological - no acute focal neurological deficit Musculoskeletal - no muscular tenderness noted Extremities - no pedal edema Skin - warm and dry Medications Medications reviewed. Allergy Allergies Coded Allergies Type Severity Reaction Last Updated Verified No Known Drug Allergies 08/10/[address] Mckinney next week. Dr. Arreguin in 2 weeks. Disposition: Home Comments Discharge Management - 35 minutes. For other details please refer to discharge instructions DUANE MCKINNEY MD 08/12/16 1230: IM DISCHARGE & PROGRESS NOTES Brief hospital course Brief hospital course O2 sat dropped to 88% on RA..still coughing. Advised incentive spirometry. Nocturnal oximetry continuous tonight. Discharge plan for tomorrow. The patient was seen and examined by me. Chart reviewed and plan of care formulated. Discussed with, reviewed and agree with ANALYSIS MANAGER's notes, plan of care and orders with modifications as necessary. For more details regarding further plans, please refer to the orders. EMILIE GILL REVENUE SETTLEMENTS ADMINISTRATOR August 12, 2016 10:01 DUANE MCKINNEY MD August 12, 2016 12:30
--- NOTE | 2016-08-12 10:04 | DISCH ---
DISCHARGE INSTRUCTIONS Condition on Discharge Condition on Discharge: Stable Activity After Discharge Activity Instructions for Disc: Activity as tolerated Driving Instructions after Dis: Do not drive (until surgeon okays. ) Diet after Discharge Diet after Discharge: Cardiac Contacting the DRMelissa after DC Call your doctor for: Concerns you may have Follow-Up Follow up with: Dr. Mckinney next Wed Follow Up With: Dr. Arreguin 2 weeks. EMILIE GILL APRN August 12, 2016 10:03
[2016-08-12] MEDS ORDERED: HYDR-2758 PO (10:06)
[2016-08-12 11:00] VITALS: BP 127/76
[2016-08-12 15:00] VITALS: BP 128/61
[2016-08-12 19:20] VITALS: BP 119/75
[2016-08-12] MEDS: MONTELUKAST SODIUM 10 MG TABLET. PO SCH (21:29)
[2016-08-12] MEDS: CETIRIZINE HCL 10 MG TABLET. PO SCH (21:29)
--- NOTE | 2016-08-12 21:44 | PDOC ---
SURGICAL PROGRESS NOTE Subjective Pt reports feeling better, abd incision feels good Vital Signs Vital Signs Date Time Temp Pulse Resp B/P (MAP) Pulse Ox O2 Delivery O2 Flow Rate FiO2 08/12/16 19:52 93 Nasal Cannula 4.0 08/12/16 19:20 98.1 78 18 119/75 (90) 98.1 I&O Intake and Output 08/12/16 07:00 Intake Total 1861 ml Output Total 210 ml Balance 1651 ml Intake Oral 200 ml IV Total 665 ml Other 996 ml Output Urine Total 100 ml Drainage Total 110 ml # Voids 9 General: Alert, Oriented X3, Cooperative, No acute distress Abdomen: Soft, No tenderness, Other (dressing c/d/i) Labs Laboratory Tests Test 08/10/16 23:30 08/11/16 05:23 08/11/16 08:00 08/12/16 04:50 O2 Saturation 99 % (92-99) 92 % (92-99) Arterial Blood pH 7.29 (7.35-7.45) 7.41 (7.35-7.45) Arterial Blood pCO2 at Patient Temp 52 mmHg (35-46) 38 mmHg (35-46) Arterial Blood pO2 at Patient Temp 235 mmHg (75-108) 61 mmHg (75-108) Arterial Blood HCO3 24 mmol/L (21-28) 24 mmol/L (21-28) Arterial Blood Base Excess -3 mmol/L (-3-3) 0 mmol/L (-3-3) FiO2 100 28 White Blood Count 11.8 x10^3/uL (4.0-11.0) 12.1 x10^3/uL (4.0-11.0) Red Blood Count 4.84 x10^6/uL (3.50-5.40) 4.93 x10^6/uL (3.50-5.40) Hemoglobin 14.6 g/dL (12.0-15.5) 14.8 g/dL (12.0-15.5) Hematocrit 43.6 % (36.0-47.0) 44.3 % (36.0-47.0) Mean Corpuscular Volume 90 fL (79-100) 90 fL (79-100) Mean Corpuscular Hemoglobin 30 pg (25-35) 30 pg (25-35) Mean Corpuscular Hemoglobin Concent 34 g/dL (31-37) 33 g/dL (31-37) Red Cell Distribution Width 14.8 % (11.5-14.5) 14.4 % (11.5-14.5) Platelet Count 307 x10^3/uL (140-400) 310 x10^3/uL (140-400) Neutrophils (%) (Auto) 85 % (31-73) 72 % (31-73) Lymphocytes (%) (Auto) 10 % (24-48) 20 % (24-48) Monocytes (%) (Auto) 4 % (0-9) 9 % (0-9) Eosinophils (%) (Auto) 0 % (0-3) 0 % (0-3) Basophils (%) (Auto) 0 % (0-3) 0 % (0-3) Neutrophils # (Auto) 10.0 x10^3uL (1.8-7.7) 8.7 x10^3uL (1.8-7.7) Lymphocytes # (Auto) 1.2 x10^3/uL (1.0-4.8) 2.4 x10^3/uL (1.0-4.8) Monocytes # (Auto) 0.5 x10^3/uL (0.0-1.1) 1.0 x10^3/uL (0.0-1.1) Eosinophils # (Auto) 0.0 x10^3/uL (0.0-0.7) 0.0 x10^3/uL (0.0-0.7) Basophils # (Auto) 0.0 x10^3/uL (0.0-0.2) 0.0 x10^3/uL (0.0-0.2) Segmented Neutrophils % 88 % (35-66) Band Neutrophils % 3 % (0-9) Lymphocytes % 6 % (24-48) Monocytes % 3 % (0-10) Platelet Estimate Adequate (ADEQUATE) Sodium Level 140 mmol/L (136-145) 140 mmol/L (136-145) Potassium Level 4.4 mmol/L (3.5-5.1) 4.2 mmol/L (3.5-5.1) Chloride Level 105 mmol/L (98-107) 103 mmol/L (98-107) Carbon Dioxide Level 28 mmol/L (21-32) 31 mmol/L (21-32) Anion Gap 7 (6-14) 6 (6-14) Blood Urea Nitrogen 13 mg/dL (7-20) 14 mg/dL (7-20) Creatinine 1.2 mg/dL (0.6-1.0) 1.1 mg/dL (0.6-1.0) Estimated GFR (Cockcroft-Gault) 46.1 51.0 Glucose Level 146 mg/dL (70-99) 123 mg/dL (70-99) Calcium Level 8.4 mg/dL (8.5-10.1) 8.8 mg/dL (8.5-10.1) Laboratory Tests Test 08/12/16 04:50 White Blood Count 12.1 x10^3/uL (4.0-11.0) Red Blood Count 4.93 x10^6/uL (3.50-5.40) Hemoglobin 14.8 g/dL (12.0-15.5) Hematocrit 44.3 % (36.0-47.0) Mean Corpuscular Volume 90 fL (79-100) Mean Corpuscular Hemoglobin 30 pg (25-35) Mean Corpuscular Hemoglobin Concent 33 g/dL (31-37) Red Cell Distribution Width 14.4 % (11.5-14.5) Platelet Count 310 x10^3/uL (140-400) Neutrophils (%) (Auto) 72 % (31-73) Lymphocytes (%) (Auto) 20 % (24-48) Monocytes (%) (Auto) 9 % (0-9) Eosinophils (%) (Auto) 0 % (0-3) Basophils (%) (Auto) 0 % (0-3) Neutrophils # (Auto) 8.7 x10^3uL (1.8-7.7) Lymphocytes # (Auto) 2.4 x10^3/uL (1.0-4.8) Monocytes # (Auto) 1.0 x10^3/uL (0.0-1.1) Eosinophils # (Auto) 0.0 x10^3/uL (0.0-0.7) Basophils # (Auto) 0.0 x10^3/uL (0.0-0.2) Sodium Level 140 mmol/L (136-145) Potassium Level 4.2 mmol/L (3.5-5.1) Chloride Level 103 mmol/L (98-107) Carbon Dioxide Level 31 mmol/L (21-32) Anion Gap 6 (6-14) Blood Urea Nitrogen 14 mg/dL (7-20) Creatinine 1.1 mg/dL (0.6-1.0) Estimated GFR (Cockcroft-Gault) 51.0 Glucose Level 123 mg/dL (70-99) Calcium Level 8.8 mg/dL (8.5-10.1) Problem List Problems Medical Problems: (1) COPD exacerbation Status: Acute (2) Incarcerated hernia Status: Acute (3) SBO (small bowel obstruction) Status: Acute Assessment/Plan s/p VIH repair cont supportive care Problems: JORDAN RUTLEDGE MD August 12, 2016 21:44
[2016-08-12 23:26] VITALS: BP 125/79
[2016-08-13] MEDS: oxyCODONE/APAP 5/325 1 TAB TABLET PO PRN ×2 (00:07→12:22)
[2016-08-13] MEDS: BENZOCAINE/MENTHOL LOZENGE. PO PRN ×3 (00:12→19:51)
[2016-08-13 03:21] VITALS: BP 113/70
[2016-08-13] MEDS: IPRATRPIUM/ALBUTEROL 0.5/2.5MG 3 ML NEBU. NEB SCH ×3 (07:18→18:59)
[2016-08-13] MEDS: BUDESONIDE 0.5 MG/2 ML NEBU. NEB SCH ×3 (07:18→19:00)
[2016-08-13] MEDS: PANTOPRAZOLE 40 MG TABLET.DR. PO SCH (07:45)
[2016-08-13 07:48] VITALS: BP 124/70
--- NOTE | 2016-08-13 08:44 | PDOC ---
SURGICAL PROGRESS NOTE Subjective difficulty with low sats last night pain managed no nausea + flatus, tolerating diet Vital Signs Vital Signs Date Time Temp Pulse Resp B/P (MAP) Pulse Ox O2 Delivery O2 Flow Rate FiO2 08/13/16 07:48 98.1 70 18 124/70 (88) 91 Nasal Cannula 2.0 98.1 I&O Intake and Output 08/13/16 07:00 Intake Total 3420 ml Output Total 80 ml Balance 3340 ml Intake Oral 1620 ml IV Total 900 ml Other 900 ml Stool Total 0 ml Drainage Total 80 ml # Voids 7 General: Alert, Oriented X3, Cooperative, No acute distress Abdomen: Soft, Other (dressing dry, john serosang) Labs Laboratory Tests Test 08/12/16 04:50 White Blood Count 12.1 x10^3/uL (4.0-11.0) Red Blood Count 4.93 x10^6/uL (3.50-5.40) Hemoglobin 14.8 g/dL (12.0-15.5) Hematocrit 44.3 % (36.0-47.0) Mean Corpuscular Volume 90 fL (79-100) Mean Corpuscular Hemoglobin 30 pg (25-35) Mean Corpuscular Hemoglobin Concent 33 g/dL (31-37) Red Cell Distribution Width 14.4 % (11.5-14.5) Platelet Count 310 x10^3/uL (140-400) Neutrophils (%) (Auto) 72 % (31-73) Lymphocytes (%) (Auto) 20 % (24-48) Monocytes (%) (Auto) 9 % (0-9) Eosinophils (%) (Auto) 0 % (0-3) Basophils (%) (Auto) 0 % (0-3) Neutrophils # (Auto) 8.7 x10^3uL (1.8-7.7) Lymphocytes # (Auto) 2.4 x10^3/uL (1.0-4.8) Monocytes # (Auto) 1.0 x10^3/uL (0.0-1.1) Eosinophils # (Auto) 0.0 x10^3/uL (0.0-0.7) Basophils # (Auto) 0.0 x10^3/uL (0.0-0.2) Sodium Level 140 mmol/L (136-145) Potassium Level 4.2 mmol/L (3.5-5.1) Chloride Level 103 mmol/L (98-107) Carbon Dioxide Level 31 mmol/L (21-32) Anion Gap 6 (6-14) Blood Urea Nitrogen 14 mg/dL (7-20) Creatinine 1.1 mg/dL (0.6-1.0) Estimated GFR (Cockcroft-Gault) 51.0 Glucose Level 123 mg/dL (70-99) Calcium Level 8.8 mg/dL (8.5-10.1) Problem List Problems Medical Problems: (1) COPD exacerbation Status: Acute (2) Incarcerated hernia Status: Acute (3) SBO (small bowel obstruction) Status: Acute Assessment/Plan s/p VIH repair hypoxia per pulm increase activity Problems: KITA STRATTON APRN August 13, 2016 08:44
[2016-08-13] MEDS: FLUTICASONE 50MCG/NASAL SPRAY 16GM BOTTLE. NS SCH (08:45)
[2016-08-13] MEDS: CHOLECALCIFEROL (VITAMIN D3) 1,000 UNIT TABLET PO SCH (08:45)
--- NOTE | 2016-08-13 09:58 | PDOC ---
PULMONARY PROGRESS NOTES Subjective had overnight ox, showed sig desat per rn, on 02, no pain, sob better.no runny nose. occ cough Vitals Vital Signs Date Time Temp Pulse Resp B/P (MAP) Pulse Ox O2 Delivery O2 Flow Rate FiO2 08/13/16 07:48 98.1 70 18 124/70 (88) 91 Nasal Cannula 2.0 98.1 General: Alert, No acute distress HEENT: Other (nc at perrl shallow oropharynx) Lungs: Crackles Cardiovascular: S1, S2 Abdomen: Soft, Non-tender Neuro Exam: Alert Extremities: Other (edema) Skin: Warm Labs Laboratory Tests Test 08/12/16 04:50 White Blood Count 12.1 x10^3/uL (4.0-11.0) Red Blood Count 4.93 x10^6/uL (3.50-5.40) Hemoglobin 14.8 g/dL (12.0-15.5) Hematocrit 44.3 % (36.0-47.0) Mean Corpuscular Volume 90 fL (79-100) Mean Corpuscular Hemoglobin 30 pg (25-35) Mean Corpuscular Hemoglobin Concent 33 g/dL (31-37) Red Cell Distribution Width 14.4 % (11.5-14.5) Platelet Count 310 x10^3/uL (140-400) Neutrophils (%) (Auto) 72 % (31-73) Lymphocytes (%) (Auto) 20 % (24-48) Monocytes (%) (Auto) 9 % (0-9) Eosinophils (%) (Auto) 0 % (0-3) Basophils (%) (Auto) 0 % (0-3) Neutrophils # (Auto) 8.7 x10^3uL (1.8-7.7) Lymphocytes # (Auto) 2.4 x10^3/uL (1.0-4.8) Monocytes # (Auto) 1.0 x10^3/uL (0.0-1.1) Eosinophils # (Auto) 0.0 x10^3/uL (0.0-0.7) Basophils # (Auto) 0.0 x10^3/uL (0.0-0.2) Sodium Level 140 mmol/L (136-145) Potassium Level 4.2 mmol/L (3.5-5.1) Chloride Level 103 mmol/L (98-107) Carbon Dioxide Level 31 mmol/L (21-32) Anion Gap 6 (6-14) Blood Urea Nitrogen 14 mg/dL (7-20) Creatinine 1.1 mg/dL (0.6-1.0) Estimated GFR (Cockcroft-Gault) 51.0 Glucose Level 123 mg/dL (70-99) Calcium Level 8.8 mg/dL (8.5-10.1) Medications Active Scripts Medications Dose Route/Sig Max Daily Dose Days Date Category Tessalon Perle (Benzonatate) 100 Mg Capsule 1 Cap PO PRN TID 08/09/16 Rx Proair Hfa Inhaler (Albuterol Sulfate) 8.5 Gm Hfa.aer.ad 2 Puff INH PRN QID PRN 08/09/16 Rx Symbicort 160-4.5 Mcg Inhaler (Budesonide/Formoterol Fumarate) 10.2 Gm Hfa.aer.ad 2 Puff IH BID 08/09/16 Rx Levaquin (Levofloxacin) 500 Mg Tablet 500 Mg PO DAILY 08/09/16 Rx Pantoprazole Sodium 40 Mg Tablet.dr 40 Mg PO DAILYAC 08/09/16 Rx Montelukast Sodium Tablet (Montelukast Sodium) 10 Mg Tablet 10 Mg PO QHS 08/09/16 Rx Fluticasone Propionate Nasal Balmorhea (Fluticasone Propionate) 16 Gm Balmorhea.susp 2 Balmorhea NS DAILY 08/09/16 Rx Vitamin D (Cholecalciferol (Vitamin D3)) 1,000 Unit Tablet 2,000 Unit PO DAILY 08/09/16 Rx Cetirizine Hcl 10 Mg Tablet 10 Mg PO HS 08/09/16 Rx Impression . IMPRESSION: 1. Acute respiratory failure, multifactorial in etiology. 2. Chronic obstructive pulmonary disease with acute exacerbation. 3. Abnormal chest x-ray. 4. Atelectasis. 5. Status post exploratory laparotomy with strangulated hernia and small bowel obstruction. 6. Obesity, snoring and excessive daytime sleepiness, probable obstructive sleep apnea-hypopnea syndrome. 7. Tobacco habituation. Plan . PLAN AND RECOMMENDATION: 1. I had a long discussion with her regarding smoking cessation. I have advised her to stop smoking forever. 2. Bronchodilator. 3. Inhaled corticosteroid. 4. incentive spirometer at least multiple times an hour. 5. Titrate FiO2 to keep O2 saturation 90%. 6. Monitor respiratory status very closely. 7. She would require a sleep study as an outpatient. 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 8. PFTs as an outpatient. 9. SCDs for DVT prophylaxis. 10. Start Lovenox when ok with surgery. 11. Protonix for stress ulcer prophylaxis. 12. overnight ox showed sig desat will need o2, until psg is done, needs 6 min walk bf dc The findings and recommendations were discussed with the patient and rn. She understood and agreed to proceed with the plan. I have answered all of her questions. PIEDAD HOYT MD August 13, 2016 09:58
--- NOTE | 2016-08-13 10:24 | PDOC ---
IM PROGRESS NOTES- Subjective Subjective cough persist Objective Objective no distress Vitals Vital Signs Date Time Temp Pulse Resp B/P (MAP) Pulse Ox O2 Delivery O2 Flow Rate FiO2 08/13/16 07:48 98.1 70 18 124/70 (88) 91 Nasal Cannula 2.0 98.1 Input & Output Intake and Output 08/13/16 07:00 Intake Total 3420 ml Output Total 80 ml Balance 3340 ml Intake Oral 1620 ml IV Total 900 ml Other 900 ml Stool Total 0 ml Drainage Total 80 ml # Voids 7 Physical Exam Physical Exam General appearance - alert,well appearing, and in mild distress Mental Status - alert, oriented to person, place, and time, affect appropriate to mood Head - normal Chest - occasional wheezes Heart - S1 and S2 normal Abdomen - soft, + tender, nondistended, BS +, dressing intact Neurological - no acute focal neurological deficit Musculoskeletal - no muscular tenderness noted Extremities - no pedal edema Skin - warm and dry Labs Laboratory Tests Test 08/12/16 04:50 White Blood Count 12.1 x10^3/uL (4.0-11.0) Red Blood Count 4.93 x10^6/uL (3.50-5.40) Hemoglobin 14.8 g/dL (12.0-15.5) Hematocrit 44.3 % (36.0-47.0) Mean Corpuscular Volume 90 fL (79-100) Mean Corpuscular Hemoglobin 30 pg (25-35) Mean Corpuscular Hemoglobin Concent 33 g/dL (31-37) Red Cell Distribution Width 14.4 % (11.5-14.5) Platelet Count 310 x10^3/uL (140-400) Neutrophils (%) (Auto) 72 % (31-73) Lymphocytes (%) (Auto) 20 % (24-48) Monocytes (%) (Auto) 9 % (0-9) Eosinophils (%) (Auto) 0 % (0-3) Basophils (%) (Auto) 0 % (0-3) Neutrophils # (Auto) 8.7 x10^3uL (1.8-7.7) Lymphocytes # (Auto) 2.4 x10^3/uL (1.0-4.8) Monocytes # (Auto) 1.0 x10^3/uL (0.0-1.1) Eosinophils # (Auto) 0.0 x10^3/uL (0.0-0.7) Basophils # (Auto) 0.0 x10^3/uL (0.0-0.2) Sodium Level 140 mmol/L (136-145) Potassium Level 4.2 mmol/L (3.5-5.1) Chloride Level 103 mmol/L (98-107) Carbon Dioxide Level 31 mmol/L (21-32) Anion Gap 6 (6-14) Blood Urea Nitrogen 14 mg/dL (7-20) Creatinine 1.1 mg/dL (0.6-1.0) Estimated GFR (Cockcroft-Gault) 51.0 Glucose Level 123 mg/dL (70-99) Calcium Level 8.8 mg/dL (8.5-10.1) Assessment Assessment 1. abdominal pain r/t incarcerated periumbilical hernia, PSBO s/p exp lap, hernia rpr with mesh 08/10/16 2. acute bronchitis 3. acute hypercapnic respiratory failure post op with suspected OHS/OCTAVIA 4. CKD II 5. suspected COPD with h/o smoking since 16yo with exacerbation 6. HTN 7. fatty liver 8. cholelithiasis asymptomatic 9. chronic L knee pain OA 10. morbid obesity with BMI 50-59 11. allergic rhinitis PLAN: abdominal pain Lactic acid 2.8 s/p hernia repair per Dr. Castillo 08/10 WBC admit 12.2 08/01 11.8 Solumedrol 100mg IV 08/09 prior to last DC Decadron in surgery Pain control: Toradol scheduled dose post op, has had no narcotics. acute hypercapnic respiratory failure/AB;AE suspected COPD Hypoxic last night- now on O2 2 lit/min.Advised to stop smoking. 6 min walk tomorrow. duoneb with budesonide in place Symbicort BIPAP post op for hypercapnia O2 3L this morning, ABGs pending 08/11 DVT/GI prophylaxis SCD/Amber PPI Plan Plan For more details regarding further plans, please refer to the orders. DUANE WHITMORE MD August 13, 2016 10:24
[2016-08-13 11:00] VITALS: BP 140/79
[2016-08-13 15:06] VITALS: BP 110/74
[2016-08-13 19:30] VITALS: BP 165/82
[2016-08-13] MEDS: CETIRIZINE HCL 10 MG TABLET. PO SCH (21:00)
[2016-08-13] MEDS: MONTELUKAST SODIUM 10 MG TABLET. PO SCH (21:00)
[2016-08-13 23:34] VITALS: BP 114/64
[2016-08-14 03:26] VITALS: BP 138/71
[2016-08-14] MEDS: oxyCODONE/APAP 5/325 1 TAB TABLET PO PRN (05:01)
[2016-08-14 07:00] VITALS: BP 105/62
[2016-08-14] MEDS: IPRATRPIUM/ALBUTEROL 0.5/2.5MG 3 ML NEBU. NEB SCH ×2 (07:10→11:11)
[2016-08-14] MEDS: BUDESONIDE 0.5 MG/2 ML NEBU. NEB SCH (07:10)
[2016-08-14] MEDS: PANTOPRAZOLE 40 MG TABLET.DR. PO SCH (08:32)
[2016-08-14] MEDS: CHOLECALCIFEROL (VITAMIN D3) 1,000 UNIT TABLET PO SCH (08:32)
[2016-08-14] MEDS: FLUTICASONE 50MCG/NASAL SPRAY 16GM BOTTLE. NS SCH (08:32)
--- NOTE | 2016-08-14 10:11 | PDOC ---
PULMONARY PROGRESS NOTES Subjective no soa Vitals Vital Signs Date Time Temp Pulse Resp B/P (MAP) Pulse Ox O2 Delivery O2 Flow Rate FiO2 08/14/16 07:13 92 Nasal Cannula 2.0 08/14/16 07:00 98.0 74 20 105/62 (76) 98.0 General: Alert, No acute distress HEENT: Other (nc at perrl shallow oropharynx) Lungs: Clear Cardiovascular: S1, S2 Abdomen: Soft, Non-tender Neuro Exam: Alert Extremities: Other (edema) Skin: Warm Medications Active Scripts Medications Dose Route/Sig Max Daily Dose Days Date Category Tessalon Perle (Benzonatate) 100 Mg Capsule 1 Cap PO PRN TID 08/09/16 Rx Proair Hfa Inhaler (Albuterol Sulfate) 8.5 Gm Hfa.aer.ad 2 Puff INH PRN QID PRN 08/09/16 Rx Symbicort 160-4.5 Mcg Inhaler (Budesonide/Formoterol Fumarate) 10.2 Gm Hfa.aer.ad 2 Puff IH BID 08/09/16 Rx Levaquin (Levofloxacin) 500 Mg Tablet 500 Mg PO DAILY 08/09/16 Rx Pantoprazole Sodium 40 Mg Tablet.dr 40 Mg PO DAILYAC 08/09/16 Rx Montelukast Sodium Tablet (Montelukast Sodium) 10 Mg Tablet 10 Mg PO QHS 08/09/16 Rx Fluticasone Propionate Nasal Fenton (Fluticasone Propionate) 16 Gm Fenton.susp 2 Fenton NS DAILY 08/09/16 Rx Vitamin D (Cholecalciferol (Vitamin D3)) 1,000 Unit Tablet 2,000 Unit PO DAILY 08/09/16 Rx Cetirizine Hcl 10 Mg Tablet 10 Mg PO HS 08/09/16 Rx Impression . 1. Acute respiratory failure, multifactorial in etiology. 2. Chronic obstructive pulmonary disease with acute exacerbation. 3. Abnormal chest x-ray. 4. Atelectasis. 5. Status post exploratory laparotomy with strangulated hernia and small bowel obstruction. 6. Obesity, snoring and excessive daytime sleepiness, probable obstructive sleep apnea-hypopnea syndrome. 7. Tobacco habituation. Plan . 1. I had a long discussion with her regarding smoking cessation. I have advised her to stop smoking forever. 2. Bronchodilator. 3. Inhaled corticosteroid. 4. incentive spirometer at least multiple times an hour. 5. Titrate FiO2 to keep O2 saturation 90%. 6. Arrange home oxygen based on 6 min walk test 7. She would require a sleep study as an outpatient. Obstructive sleep apnea-hypopnea syndrome, the importance of diagnosis and treatment, if untreated, increased cardiovascular and [employer] morbidity or mortality was discussed with the patient. 8. PFTs as an outpatient. 9. SCDs for DVT prophylaxis. NENITA WAGNER MD August 14, 2016 10:11
[2016-08-14 11:00] VITALS: BP 143/84
--- NOTE | 2016-08-14 11:16 | PDOC ---
SURGICAL PROGRESS NOTE Subjective tolerating diet + stool ready for dc home Vital Signs Vital Signs Date Time Temp Pulse Resp B/P (MAP) Pulse Ox O2 Delivery O2 Flow Rate FiO2 08/14/16 11:12 93 Nasal Cannula 2.0 08/14/16 07:00 98.0 74 20 105/62 (76) 98.0 I&O Intake and Output 08/14/16 06:59 Intake Total 1600 ml Output Total 100 ml Balance 1500 ml Intake Oral 1600 ml Drainage Total 100 ml # Voids 4 # Bowel Movements 1 General: Alert, Oriented X3, Cooperative, No acute distress Abdomen: Soft, Other (soft, ND, incision c/d/i, no erythema, JONNIE serosang) Problem List Problems Medical Problems: (1) COPD exacerbation Status: Acute (2) Incarcerated hernia Status: Acute (3) SBO (small bowel obstruction) Status: Acute Assessment/Plan s/p VIH repair home with drain, FU Problems: KITA STRATTON APRN August 14, 2016 11:16
--- NOTE | 2016-08-14 16:03 | PATHOLOGY ---
PATHOLOGY REPORT * * * * * * * * FINAL DIAGNOSIS: "Omentum and hernia sac", omentectomy and herniorrhaphy: - Hernia sac. - Unremarkable omental adipose tissue. REPORT ELECTRONICALLY SIGNED BY: Ryley Rodríguez M.D. DATE/TIME: 08/14/2016 16:02 * * * * * * * * GROSS PATHOLOGY: The specimen is received in formalin labeled "Enedelia Doan, omentum and hernia sac". Received is a segment of mendoza-liu fibromembranous tissue admixed with yellow-liu omentum measuring 21.5 x 14.8 x 3.8 cm in aggregate dimensions. Sectioning reveals yellow-liu, lobulated cut surfaces with no grossly distinct nodules or lesions. The specimen is submitted representatively in cassette A1. (CAA; 08/13/2016) INITIAL CPT CODE(S): 56808 Professional services performed [place] [address] Technical services performed by [facility] at [address] [place] [address], [facility] [address] [address]. SPECIMEN(S) RECEIVED: A.Omentum and hernia sac CLINICAL HISTORY: SBO, incarcerated hernia PATIENT: ENEDELIA DOAN /AGE: 407/16/1960 (Age: 56) PATIENT #: [id number] ALT CASE #: SPECIMEN COLLECTION DATE: 08/10/2016 SPECIMEN RECEIVED DATE: 08/11/2016 [facility] - [address] [place] [address] - PHONE: [phone] * * * END OF REPORT * * *
--- NOTE | 2016-08-15 12:52 | RESP ---
DATE OF SERVICE: 08/12/2016 NOCTURNAL OXIMETRY STUDY ATTENDING PHYSICIAN: Dr. Dileep Mckinney. This patient was placed later on 3 liters of oxygen. The patient's mean oxygen saturation remained around 85% with the lowest of 32%, which is probably an artifact. A 61% of time oxygen saturation remained less than 90%. IMPRESSION: 1. [id number]-hveqlr nocturnal hypoxia. RECOMMENDATIONS: The patient would benefit from 2 liters of oxygen at nighttime. The patient would also need full polysomnogram to rule out sleep apnea. NENITA WAGNER MD DR: MARTY/sree JOB#: [id number] / [id number]
== END 2016-08-14 16:40 | disposition home health service (06) | DRG 353 ==
LOC: ER 16:53 → 4 NORTH 19:03
PROVIDERS: ADMIT Internal Medicine; ATTEND Internal Medicine
PROC: 5A09357 Assistance with Respiratory Ventilation, Less than 24 Consecutive Hours, Continuous Positive Airway Pressure (ICD-10-PCS; 2016-08-10)
PROC: 0WUF0JZ Supplement Abdominal Wall with Synthetic Substitute, Open Approach (ICD-10-PCS; principal; 2016-08-10 21:00)
DX: K43.6 Other and unspecified ventral hernia with obstruction, without gangrene (principal); J96.02 Acute respiratory failure with hypercapnia; J44.0 Chronic obstructive pulmonary disease with (acute) lower respiratory infection; J44.1 Chronic obstructive pulmonary disease with (acute) exacerbation; J98.11 Atelectasis; Z68.43 Body mass index [BMI] 50.0-59.9, adult; E66.01 Morbid (severe) obesity due to excess calories; F17.200 Nicotine dependence, unspecified, uncomplicated; G47.33 Obstructive sleep apnea (adult) (pediatric); G89.29 Other chronic pain; I12.9 Hypertensive chronic kidney disease with stage 1 through stage 4 chronic kidney disease, or unspecified chronic kidney disease; J20.9 Acute bronchitis, unspecified; J30.9 Allergic rhinitis, unspecified; K76.0 Fatty (change of) liver, not elsewhere classified; K42.0 Umbilical hernia with obstruction, without gangrene; K80.20 Calculus of gallbladder without cholecystitis without obstruction; M19.90 Unspecified osteoarthritis, unspecified site; R09.02 Hypoxemia; N18.2 Chronic kidney disease, stage 2 (mild); Z82.49 Family history of ischemic heart disease and other diseases of the circulatory system; Z83.3 Family history of diabetes mellitus; Z98.1 Arthrodesis status
CPT/HCPCS: 36415; 36600; 71010; 74177; 80048; 80053; 82805; 83605; 83690; 85007; 85027; 88307; 94620; 94640; 94660; 94760; 94799; 99406; C1781; G0238; J0330; J0690; J1100; J1885; J2250; J2270; J2370; J2405; J2704; J2710; J2930; J3010; J3490; J7030; J7620; Q9967